=== PATIENT | male | born 1950 | race Caucasian/White ===

== ENCOUNTER 2017-10-19 10:04 | Day surgery (SDC) | payer MEDICARE, OTHER, SELFPAY ==
--- NOTE | 2017-10-19 10:04 | DT_ITS ---
This patient was seen during an EMR downtime October 12, 2017 - October 19, 2017. This patient may have a combination of paper and electronic documentation or all paper documentation. All documentation is viewable within the e-chart portion of [facility] for each patient visit.
--- NOTE | 2017-10-19 12:15 | RAD_ITS ---
STUDY: X-RAY - RIGHT WRIST REASON FOR EXAM: Male, 67 years old. ORIF TECHNIQUE: 3 intraoperative fluoroscopic views were provided during ORIF of a radial fracture. COMPARISON: None. FINDINGS: Total fluoroscopy time 13.6 seconds. 3 fluoroscopic views demonstrate placement of hardware during open reduction and internal fixation of a radial fracture. RAD/Wrist min 3 Views IMPRESSION: As above. Electronically Signed: Ricardo Cam, at 17:56 EDT Tel , Service support ,
== END 2017-10-19 15:55 | disposition home or self-care (01) ==
LOC: SDC 10:05
PROVIDERS: Family Provider Family Medicine; PCP Family Medicine; Visit Provider Orthopaedic Surgery
DX: S52.531A Colles' fracture of right radius, initial encounter for closed fracture (principal); W19.XXXA Unspecified fall, initial encounter; Y93.9 Activity, unspecified; Y92.9 Unspecified place or not applicable; Y99.9 Unspecified external cause status; I47.1 Supraventricular tachycardia; N28.1 Cyst of kidney, acquired; I10 Essential (primary) hypertension; E78.00 Pure hypercholesterolemia, unspecified; R19.7 Diarrhea, unspecified; Z87.891 Personal history of nicotine dependence
CPT/HCPCS: 01830; 25607; 73110; 76000; C1713; J7120; J2405

== ENCOUNTER 2017-12-16 08:00 | Outpatient (RCR) | payer MEDICARE, OTHER, SELFPAY ==
--- NOTE | 2017-11-24 11:15 | HP.OTEVAL ---
Patient's Visit Information ANA NOONAN is a 67 year old M, referred to Occupational Therapy by Monroe Devine, with a diagnosis of right distal radius fx. Date of Evaluation: 11/24/17 Occupational Therapist: Lynda Whitaker, MICHAEL/Jill, CHT - Subjective Subjective: Pt arrives to OT eval with dx of right radius fx. states he fell forward on October 12. Followed with ORIF October 19, 2017. PT states he is having difficulty with dressing, home mtg and work tasks at this time. He is right handed. 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 - Pain rigth wrist 2 Pain Intensity Range: 0, 4 - ROM Wrist: right 40/15 left 60/30 ROM Comments: left RD 15 UD 20. Right RD10 UD 15 - Strength Corporate Controller: right 25# left 60# Lateral Pinch: Right 8# left 12# Tripod Pinch: right 4# left 12# - Edema PIP: right MF 7.8 left 6.8 - Sensation Sensation Comments: denies - DASH-Disabilities of Arm, Shoulder& Hand DASH Sum: 64 - Goals Goal:: pt will demo a right refining engineer strength of 50# to return pt to PLOF with IADLs and work tasks by d/c Goal:: pt will demo a increase in right wrist ROM by 20 degrees to increase pt in functional BADLS and IADLS. Goal:: pt will report no pain greater than 1/10 with use of right UE for BADLS and IADLS by d/c Goal:: pt will demo understanding of scar mtg by end of 1st session. - Rehabilitation General Assessment: pt demo a decrease in right wrist ROM and functional strength limiting his ind. with BADLS and IADLS. pt demo need for skilled OT services 1-2xweek for 6 weeks- treatment will focus on ROM and PRE, scar mtg and HEP. Rehabilitation Potential: Excellent - Anticipated Interventions Anticipated Interventions: A/AAROM/PROM, Strengthening, Scar Care, Modalities, Fine Motor Coord/Dl - Visit Plan Frequency: 1-2x /Week Duration: 4 Weeks TEXT: Thank you for the opportunity to evaluate your patient. For Medicare and Medicare HMO plans, please review the plan of care and approve it. It will need to be FAXED BACK to us at [phone] for Medicare purposes. Please let me know if there are questions or concerns regarding this plan of care. Physician Signature: Date:
--- NOTE | 2017-12-16 08:16 | HP.OTDCSUM_ITS ---
HP - OT D/C Summary It has been my pleasure to treat ANA NOONAN under orders from Monroe Devine, for the diagnosis of right distal radius fx for a total of 7 visit(s). Please see the following information for a summary of their discharge status. - Overall Improvement % Improvement: 90 - Objective Objective/Function: pt demo the ability to form a composite fist. right boarding machine operator 70 # a increase from 25#. right lateral 10#. right tripod 10#. right wrist 50/ 40. pt reports he is ind. with BADls and IADLs. pt has returned to perfroming home mtg and yard work without difficuty. - Goals Patient Goals: Regain Mobility, Regain Strength, Decrease Swelling/Stiffness, Improve Fine Motor Skills, Use Hand/Wrist/Arm Normally Again Goal:: pt will demo a right boarding machine operator strength of 50# to return pt to PLOF with IADLs and work tasks by d/c Goal:: pt will demo a increase in right wrist ROM by 20 degrees to increase pt in functional BADLS and IADLS. Goal:: pt will report no pain greater than 1/10 with use of right UE for BADLS and IADLS by d/c Goal:: pt will demo understanding of scar mtg by end of 1st session. - Plan Plan: D/C - D/C Information Discharge Comments: Pt was seen for 7 OT visits following a right ORIF. pt has made great gains in strength and has returned to performing BADLs and IADLs. pt has returned to his work tasks without limitations. pt has met OT goals at this time. If there are questions or concerns regarding this patient's occupational therapy , please fell free to call me at [phone]. Thank you for the referral of this patient. Sincerely, Lynda Whitaker, OTR/L, CHT
== END 2017-12-16 13:31 | disposition home or self-care (01) ==
LOC: OT 08:00
PROVIDERS: Family Provider Family Medicine; PCP Family Medicine; Visit Provider Orthopaedic Surgery
DX: S52.531D Colles' fracture of right radius, subsequent encounter for closed fracture with routine healing (principal)
CPT/HCPCS: 97110; 97140; 97166; 97168

== ENCOUNTER 2022-02-26 21:11 | Inpatient (IN) | payer MEDICARE, SELFPAY ==
[2022-02-26 21:12] VITALS: BP 161/90; PULSE 71; RESP 18; TEMP 36.4; O2SAT 99; BMI 25.0
--- NOTE | 2022-02-26 21:31 | CT_ITS ---
STUDY: CT ABDOMEN AND PELVIS WITH CONTRAST REASON FOR EXAM: Male, 71 years old. LLQ pain -- IV PO Contrast RADIATION DOSAGE (If Supplied By Facility): CTDIvol = ( 17.80 ) mGy, DLP = ( 2308.70 ) mGycm TECHNIQUE: Transaxial images were obtained from the dome of the diaphragm to the symphysis pubis without oral contrast. Oral and amp; IV Gastrografin and amp; 100mL Isovue-370 was administered. Sagittal and coronal images were reconstructed. Individualized dose optimization techniques were used for this CT. COMPARISON: None. FINDINGS: The visualized lung bases are unremarkable. The visualized portions of the heart are within normal limits. Normal liver with several cysts. Normal gallbladder and extrahepatic biliary system. Normal spleen. Normal pancreas. Normal bilateral adrenal glands. Symmetric nephrograms and bilateral renal cysts. Small intraperitoneal free gas, predominantly upper and anterior. Normal visualized stomach. Normal small intestine. Enteric contrast reaches the cecum. Descending/sigmoid diverticula with associated inflammatory stranding and small free gas. No associated drainable fluid collection. The appendix is visualized and appears normal. Normal abdominal aorta. Normal inferior vena cava. Normal retroperitoneum. Normal urinary bladder. Normal visualized prostate gland. Normal abdominal wall. Normal thoracolumbar vertebral alignment. CT/Abdomen/Pelvis WITH Contrast IMPRESSION: Acute perforated sigmoid diverticulitis. Electronically Signed: Devante Becerra MD at 0:12 EDT ,
--- NOTE | 2022-02-26 21:32 | EX.ED.DYSGE1 ---
HPI <Dr. Marta Tompkins MD - Last Filed: 02/28/22 11:49> History of Present Illness Chief Complaint: Abd Pain Informant: patient Onset/Context/Timing Onset: Today Current Severity: Mild Maximum Severity: Severe Narrative Narrative: Patient presents secondary to left lower quadrant abdominal pain. He states around 7 PM this evening he had rather abrupt onset of left lower quadrant pain. It is been cramping and spasm-like. He reports having normal bowel movement today. No urinary symptoms. Only abdominal surgery in the past was a small right inguinal hernia. [facility] <Dr. Marta Tompkins MD - Last Filed: 02/28/22 11:49> [facility] Medical History Chest pain HTN (hypertension) Irregular heart beat Non-smoker Sleep apnea Home Medications ascorbic acid (vitamin C) 500 mg capsule,extended release (Vitamin C) 500 mg PO DAILY supplement 07/07/20 [History Last Taken 02/20/22 08:00] lisinopril 10 mg tablet 10 mg PO bp 07/07/20 [History Last Taken 02/26/22 08:00] Allergy/AdvReac Type Severity Reaction Status Date / Time No Known Allergies Allergy Verified 02/26/22 21:14 Family History Father Myocardial infarction Surgical History H/O wrist surgery History of hernia repair Social History Smoking Status: Never smoker alcohol intake: never ROS <Dr. Marta Tompkins MD - Last Filed: 02/28/22 11:49> ROS ED Constitutional Constitutional ED: Denies chills or fever(s) Eyes Eyes: Denies change in vision or discharge from eye(s) ENT ENT ED: Denies discharge from eye(s), rhinorrhea or sore throat Cardiovascular Cardiovascular: Denies chest pain or palpitations Respiratory/Chest Respiratory/Chest: Denies cough or dyspnea Gastrointestinal Gastrointestinal: Reports abdominal pain; Denies diarrhea, nausea or vomiting Genitourinary Genitourinary ED: Denies difficulty urinating or dysuria Musculoskeletal Musculoskeletal: Denies back pain or extremity pain Integumentary Denies Abrasions or rash Neurologic Neurologic: Denies headache(s) or weakness Psychiatric Psychiatric: Denies anxiety or depression Allergic/Immunologic Allergic/Immunologic ED: Denies lip swelling or urticaria EXAM <Dr. Marta Tompkins MD - Last Filed: 02/28/22 11:49> Physical Exam Const Vital Signs: 02/26/22 21:12 02/27/22 01:42 02/27/22 01:30 Temperature 97.6 F L 97.9 F Temperature Source Temporal Temporal Pulse Rate 71 79 77 Respiratory Rate 18 15 16 Blood Pressure 161/90 H 139/85 H Blood Pressure Mean 113 103 Pulse Ox 99 99 99 Oxygen Delivery Method Room Air Room Air Room Air Positive well nourished and well developed General Appearance ED: well developed HEENT Reports normocephalic and head/scalp atraumatic Eyes PERRL and EOMs intact bilaterally Neck supple Chest Wall inspection of chest normal and palpation of chest normal Resp normal respiratory effort and clear to auscultation bilaterally Cardio regular rate and regular rhythm GI GI Narrative: Focal toAbdomen is mildly distended. Active bowel sounds are noted. Newness on palpation. No palpable masses. Palpation: soft Extremity normal to inspection Neuro oriented x3 and no sensory deficits noted Sensorium / Orientation: alert Motor Exam: strength 5/5 throughout Psych mental status grossly normal Skin no rashes or lesions noted <Dr. Benjamin Garcia DO - Last Filed: 02/27/22 01:44> Physical Exam Const Vital Signs: 02/26/22 21:12 02/27/22 01:42 02/27/22 01:30 Temperature 97.6 F L 97.9 F Temperature Source Temporal Temporal Pulse Rate 71 79 77 Respiratory Rate 18 15 16 Blood Pressure 161/90 H 139/85 H Blood Pressure Mean 113 103 Pulse Ox 99 99 99 Oxygen Delivery Method Room Air Room Air Room Air MDM <Dr. Marta Tompkins MD - Last Filed: 02/28/22 11:49> MDM MDM Narrative Medical decision making narrative: IV line initiated and patient given IV fluids. Lab work and urinalysis ordered. CT scan abdomen pelvis with contrast obtained. Patient did have increased pain again while awaiting CT imaging and was given morphine and Zofran. Lab Data Attestation: I reviewed the patient's lab results. Labs: Laboratory Results - last 24 hr 02/26/22 02/26/22 02/26/22 21:36 21:41 21:41 WBC 9.9 RBC 5.38 Hgb 16.6 H Hct 50.4 MCV 93.7 MCH 30.9 MCHC 32.9 RDW Std Deviation 44.5 H RDW Coeff of Matthew 13.1 Plt Count 280 MPV 9.0 Immature Gran % (Auto) 0.400 Neut % (Auto) 76.0 H Lymph % (Auto) 15.4 L [place]cd[place] % (Auto) 6.2 Eos % (Auto) 1.8 Baso % (Auto) 0.2 Absolute Neuts (auto) 7.6 Absolute Lymphs (auto) 1.53 Nucleated RBC % 0 Sodium 141 Potassium 4.2 Chloride 106 Carbon Dioxide 31.0 Anion Gap 4 L BUN 18 Creatinine 1.12 Estim Creat Clear Calc 67.36 Est GFR (MDRD) Af Amer 83 Est GFR (MDRD) Non-Af 69 BUN/Creatinine Ratio 16.1 Glucose 121 H Calcium 9.6 Urine Color Straw Urine Clarity Clear Urine pH 7.0 Ur Specific [place] 1.010 Urine Protein Negative Urine Glucose (UA) Normal Urine Ketones Negative Urine Occult Blood Negative Urine Nitrite Negative Urine Bilirubin Negative Urine Urobilinogen Normal Ur Leukocyte Esterase Negative Urine RBC 0 SEEN Urine WBC 0 SEEN Ur Squamous Epith Cells 0 SEEN Urine Bacteria RARE Hyaline Casts 10-25 SEEN Fine Granular Casts 5-10 SEEN Coarse Granular Casts 0-5 SEEN Urine Mucus 0 SEEN Radiography Diagnostic Testing: Clinical Impression(s) from Imaging Studies Abdomen/Pelvis CT 02/26/22 21:31 IMPRESSION: Acute perforated sigmoid diverticulitis. Electronically Signed: Devante Becerra MD at 0:12 EDT , Treatment and Re-Evaluation Narrative: CBC and chemistry studies unremarkable. Urinalysis reveals casts but no sign of acute infection. On repeat exam abdomen is distended with hypoactive bowel sounds. He tells me his last bowel movement was about 12 hours ago. He has been passing a small amount of gas today. His pain started [address] scan will be sent out to oncoming physician for final interpretation and repeat eval. This was discussed with the patient and at bedside as well. <Dr. Benjamin Garcia, DO - Last Filed: 02/27/22 01:44> [facility] Narrative Medical decision making narrative: IV line initiated and patient given IV fluids. Lab work and urinalysis ordered. CT scan abdomen pelvis with contrast obtained. Patient did have increased pain again while awaiting CT imaging and was given morphine and Zofran. Patient was signed out to me while awaiting the CT results. The CT scan showed acute diverticulitis with perforation. Secondary to this I contacted general surgery who came to the ER to evaluate the patient. At this time after reviewing the CT scan as well as examining the patient general surgery feels that he can put him into the hospital and provide IV antibiotics and that there is no need for an emergent surgical procedure at this time. Patient was started on Zosyn secondary to the infectious process and was admitted to the hospital in stable condition Lab Data Labs: Laboratory Results - last 24 hr 02/26/22 02/26/22 02/26/22 21:36 21:41 21:41 WBC 9.9 RBC 5.38 Hgb 16.6 H Hct 50.4 MCV 93.7 MCH 30.9 MCHC 32.9 RDW Std Deviation 44.5 H RDW Coeff of Matthew 13.1 Plt Count 280 MPV 9.0 Immature Gran % (Auto) 0.400 Neut % (Auto) 76.0 H Lymph % (Auto) 15.4 L Mcdowell % (Auto) 6.2 Eos % (Auto) 1.8 Baso % (Auto) 0.2 Absolute Neuts (auto) 7.6 Absolute Lymphs (auto) 1.53 Nucleated RBC % 0 Sodium 141 Potassium 4.2 Chloride 106 Carbon Dioxide 31.0 Anion Gap 4 L BUN 18 Creatinine 1.12 Estim Creat Clear Calc 67.36 Est GFR (MDRD) Af Amer 83 Est GFR (MDRD) Non-Af 69 BUN/Creatinine Ratio 16.1 Glucose 121 H Calcium 9.6 Urine Color Straw Urine Clarity Clear Urine pH 7.0 Ur Specific [place] 1.010 Urine Protein Negative Urine Glucose (UA) Normal Urine Ketones Negative Urine Occult Blood Negative Urine Nitrite Negative Urine Bilirubin Negative Urine Urobilinogen Normal Ur Leukocyte Esterase Negative Urine RBC 0 SEEN Urine WBC 0 SEEN Ur Squamous Epith Cells 0 SEEN Urine Bacteria RARE Hyaline Casts 10-25 SEEN Fine Granular Casts 5-10 SEEN Coarse Granular Casts 0-5 SEEN Urine Mucus 0 SEEN Radiography Diagnostic Testing: Clinical Impression(s) from Imaging Studies Abdomen/Pelvis CT 02/26/22 21:31 IMPRESSION: Acute perforated sigmoid diverticulitis. Electronically Signed: Devante Becerra MD at 0:12 EDT , Discharge Plan Dx/Rx/DC Orders Clinical Impression: Diverticulitis of colon with perforation, Hypertension Disposition Disposition: Acute Care Hospital [facility]
[2022-02-26 21:50] LABS: Mucous, Urine 0 SEEN /hpf (<or=2+); Red Blood Cells-Urine 0 SEEN /hpf (0-5); Squamous Epithelial Cells - UA 0 SEEN /hpf (0-5); White Blood Cells 0 SEEN /hpf (0-5)
[2022-02-26 21:53] LABS: Absolute Lymphocyte Count 1.53 X10^3/uL (0.83-4.51); Absolute Neutrophil Count 7.6 X10^3/uL (2.0-7.7); Basophil# 0.02 X10^3/uL; Basophil% 0.2 % (0-1); Eosinophil# 0.18 X10^3/uL; Eosinophils% 1.8 % (0-5); Hematocrit 50.4 % (40-54); Hemoglobin 16.6 g/dL (13.0-16.5); Lymphocyte # 1.53 X10^3/ul (0.83-4.51); Lymphocyte % 15.4 % (19-41); Mean Corp Hgb Conc 32.9 g/dL (32-36); Mean Corpuscular Hgb 30.9 pg (27.0-32.0); Mean Corpuscular Volume 93.7 fL (80-94); Monocyte# 0.62 X10^3/uL; Monocyte% 6.2 % (0-10); NRBC Flagged by Analyzer 0 % (0-5); Neutrophil # 7.55 X10^3/uL (2.7-7.7); Platelet Count 280 K/mm3 (150-450); RBC Distribution Width CV 13.1 % (11.6-14.6); RBC Distribution Width SD 44.5 fl (35.1-43.9); Red Blood Count 5.38 M/mm3 (4.6-6.2); White Blood Count 9.9 K/mm3 (4.4-11.0)
[2022-02-26 21:59] LABS: Color, Urine Straw (Yellow); Glucose, Dipstick Normal (Normal); Ketone-Dipstick Negative (Negative); Leukocyte Esterase-Dipstick Negative /ul (Negative); Nitrite-Dipstick Negative (Negative); Occult Blood-Urine Negative /ul (Negative); Protein-Dipstick Negative (Negative); Urine Bilirubin Dipstick Negative (Negative); Urine Clarity Clear (Clear); Urine Urobilinogen Normal (Normal)
[2022-02-26] MEDS: 0.9% Normal Saline 1,000 ML 150 ML IV (22:00)
[2022-02-26 22:06] LABS: Anion Gap 4 (5-15); BUN 18 mg/dL (7-18); BUN/Creat Ratio 16.1 RATIO (10-20); Calcium,Total 9.6 mg/dL (8.5-10.1); Chloride 106 mmol/L (98-107); Creatinine, Serum 1.12 mg/dL (0.70-1.30); EST Glomerular Filtration Rate 69 mL/min (>60); Est Glom Filt Rate - Afr Amer 83 mL/min (>60); Estimated Creatinine Clearance 67.36 ml/min; Glucose 121 mg/dL (74-106); Potassium 4.2 mmol/L (3.5-5.1); Sodium Level 141 mmol/L (136-145)
[2022-02-26 22:08] LABS: Bacteria RARE /hpf (None Seen); Hyaline Cast 10-25 SEEN /lpf (0-5)
[2022-02-26 22:09] LABS: Coarse Granular Cast 0-5 SEEN /lpf (0-5 /lpf); Fine Granular Cast- Urine 5-10 SEEN /lpf (0-5)
[2022-02-26] MEDS: Ondansetron 4 MG/2 ML Vial IV (22:39)
[2022-02-26] MEDS: Morphine 4 MG/ML Syringe IV (22:39)
[2022-02-27] VITALS (8 sets, daily range): BP systolic 118–145; BP diastolic 72–93; PULSE 72–81; RESP 15–18; TEMP 36.6–37.3; O2SAT 94–99; BMI 25.0
--- NOTE | 2022-02-27 01:30 | PCM.HP.STD ---
HPI - General HPI Narrative ANA NOONAN, is a 71 M who presents with lower abdominal pain. Patient reports this started about 5:30 PM. He says that he felt a sharp pain in the left lower quadrant that started suddenly. He currently says his pain is well controlled on the morphine which he took 3 hours ago. He denies any nausea or vomiting or fevers or chills. He denies any radiation of pain. He has never had diverticulitis in the past. Denies previous colonoscopy only Cologuard. He is on turmeric. He reports recent travel to [place]. [facility] Medical History HTN (hypertension) Home Medications ascorbic acid (vitamin C) 500 mg capsule,extended release (Vitamin C) 500 mg PO DAILY 07/07/20 [History Last Taken Unknown] cholecalciferol (vitamin D3) 10 mcg (400 unit) capsule (Vitamin D3) 10 mcg PO DAILY 07/07/20 [History Last Taken Unknown] elderberry fruit 460 mg-elderberry flower 115 mg capsule cap PO 07/07/20 [History Last Taken Unknown] lisinopril 10 mg tablet mg PO 07/07/20 [History Last Taken Unknown] turmeric 400 mg capsule mg PO 07/07/20 [History Last Taken Unknown] Allergy/AdvReac Type Severity Reaction Status Date / Time No Known Allergies Allergy Verified 02/26/22 21:14 Family History Father Myocardial infarction Surgical History H/O wrist surgery History of hernia repair Social History Smoking Status: Never smoker alcohol intake: never ROS Constitutional Constitutional: Denies anorexia, chills, fatigue or fever(s) Eyes Eyes: Denies blurry vision ENT HEENT: Denies abnormal hearing Cardiovascular Cardiovascular: Denies chest pain Respiratory/Chest Respiratory/Chest: Denies cough or dyspnea Gastrointestinal Gastrointestinal: Reports abdominal pain; Denies change in bowel habits, coffee ground emesis, diarrhea, hematemesis, hematochezia, melena, nausea, rectal bleeding or vomiting Genitourinary Genitourinary: Denies change in urinary stream Musculoskeletal Musculoskeletal: Denies abnormal gait Integumentary Integumentary: Denies jaundice Psychiatric Psychiatric: Denies anxiety Endocrine Endocrinology: Denies flushing Hematologic/Lymphatic Hematologic/Lymphatic: Denies easy bleeding Vital Signs Vital Signs Vital Signs: 02/26/22 21:12 Temperature 97.6 F L Temperature Source Temporal Pulse Rate 71 Respiratory Rate 18 Blood Pressure 161/90 H Blood Pressure Mean 113 Pulse Ox 99 Oxygen Delivery Method Room Air Weight Weight: 185 lb Body Mass Index (BMI) 25.0 Physical Exam Const oriented x3 and no apparent distress Resp normal respiratory effort Cardio regular rate and regular rhythm GI Palpation: tender LLQ Results Lab / Micro Data Result Diagrams: 02/26/22 21:41 02/26/22 21:41 Labs: Laboratory Results - last 24 hr 02/26/22 21:36: Urine Color Straw, Urine Clarity Clear, Urine pH 7.0, Ur Specific [place] 1.010, Urine Protein Negative, Urine Glucose (UA) Normal, Urine Ketones Negative, Urine Occult Blood Negative, Urine Nitrite Negative, Urine Bilirubin Negative, Urine Urobilinogen Normal, Ur Leukocyte Esterase Negative, Urine RBC 0 SEEN, Urine WBC 0 SEEN, Ur Squamous Epith Cells 0 SEEN, Urine Bacteria RARE, Hyaline Casts 10-25 SEEN, Fine Granular Casts 5-10 SEEN, Coarse Granular Casts 0-5 SEEN, Urine Mucus 0 SEEN 02/26/22 21:41: WBC 9.9, RBC 5.38, Hgb 16.6 H, Hct 50.4, MCV 93.7, MCH 30.9, MCHC 32.9, RDW Std Deviation 44.5 H, RDW Coeff of Matthew 13.1, Plt Count 280, MPV 9.0, Immature Gran % (Auto) 0.400, Neut % (Auto) 76.0 H, Lymph % (Auto) 15.4 L, [place] % (Auto) 6.2, Eos % (Auto) 1.8, Baso % (Auto) 0.2, Absolute Neuts (auto) 7.6, Absolute Lymphs (auto) 1.53, Nucleated RBC % 0 02/26/22 21:41: Sodium 141, Potassium 4.2, Chloride 106, Carbon Dioxide 31.0, Anion Gap 4 L, BUN 18, Creatinine 1.12, Estim Creat Clear Calc 67.36, Est GFR (MDRD) Af Amer 83, Est GFR (MDRD) Non-Af 69, BUN/Creatinine Ratio 16.1, Glucose 121 H, Calcium 9.6 Radiology Impression Abdomen/Pelvis CT 02/26/22 21:31 IMPRESSION: Acute perforated sigmoid diverticulitis. Electronically Signed: Devante Becerra MD at 0:12 EDT , Assessment & Plan Assessment/Plan (1) Diverticulitis of colon with perforation: PLAN: The patient has diverticulitis of the sigmoid descending junction. The patient CT scan shows some bubbles of air. I am unsure if the bubbles of air are a microperforation that has sealed or if we are just taking a CT scan very early in the process. Currently his abdomen is tender in the left lower quadrant but he is not having diffuse tenderness or guarding. Patient has tenderness to deep palpation in that area. He denies nausea or vomiting or fevers or chills. He is not tachycardic. His white count is upper limits of normal with a small left shift. At this time the patient appears comfortable on morphine that was given around 3 hours ago. Likely that morphine is worn off. I discussed emergency operation versus observation. I discussed surgery with him in detail and I discussed that he would be at increased risk for colostomy or complications from surgery due to the perforation and acute nature of the diverticulitis as well as the turmeric. At this time the patient is agreeable for observation. I will recheck labs in the morning. I will start him on IV antibiotics and keep him n.p.o. I advised him that would be a few days of being n.p.o. if we are able to treat this conservatively. If his physical exam or vital signs worsen I will repeat a CT scan to see if there are any changes and possibly still have to perform emergency surgery. Patient is aware of the plan and is in agreement. The patient's is present and agree with the plan as well. Zain Kaufman MD Pager: [facility] [address] [place] [address], [address] [place] [address] Office:
[2022-02-27] MEDS: 0.9% Normal Saline 1,000 ML 125 ML IV ×3 (05:07→18:49)
[2022-02-27 06:37] LABS: Absolute Lymphocyte Count 0.85 X10^3/uL (0.83-4.51); Absolute Neutrophil Count 13.1 X10^3/uL (2.0-7.7); Basophil# 0.03 X10^3/uL; Basophil% 0.2 % (0-1); Hematocrit 43.1 % (40-54); Hemoglobin 15.1 g/dL (13.0-16.5); Lymphocyte # 0.85 X10^3/ul (0.83-4.51); Lymphocyte % 5.7 % (19-41); Mean Corpuscular Hgb 32.2 pg (27.0-32.0); Mean Corpuscular Volume 91.9 fL (80-94); Mean Platelet Vol. 9.1 fl (6.2-12.0); Monocyte# 1.03 X10^3/uL; Monocyte% 6.9 % (0-10); NRBC Flagged by Analyzer 0 % (0-5); Neutrophil # 13.07 X10^3/uL (2.7-7.7); Neutrophil % 86.9 % (47-70); Platelet Count 223 K/mm3 (150-450); RBC Distribution Width CV 13.2 % (11.6-14.6); Red Blood Count 4.69 M/mm3 (4.6-6.2)
[2022-02-27 07:03] LABS: Anion Gap 5 (5-15); BUN 18 mg/dL (7-18); BUN/Creat Ratio 16.4 RATIO (10-20); Calcium,Total 8.4 mg/dL (8.5-10.1); Chloride 109 mmol/L (98-107); EST Glomerular Filtration Rate 70 mL/min (>60); Est Glom Filt Rate - Afr Amer 85 mL/min (>60); Estimated Creatinine Clearance 68.59 ml/min; Glucose 135 mg/dL (74-106); Potassium 4.2 mmol/L (3.5-5.1); Sodium Level 141 mmol/L (136-145)
--- NOTE | 2022-02-27 09:15 | PCM.PN.SRG ---
Subjective Subjective Patient reports he is feeling much better this morning. He says he is not in as much pain as he was last night he is able to lift his legs without pain. He is still experiencing some minor pain with palpation of the left lower quadrant but other than that he is not having much pain. He reports no nausea or vomiting or fevers or chills overnight. Objective Data Objective Data Vital Signs: Vital Signs Temp Pulse Resp BP Pulse Ox O2 Del Method 98.0 F 76 17 122/86 H 96 Room Air 02/27/22 07:30 02/27/22 07:30 02/27/22 07:30 02/27/22 07:30 02/27/22 07:30 02/27/22 07:30 Oxygen Delivery Method Room Air Weight: 184 lb 15.485 oz Body Mass Index (BMI) 25.0 Intake & Output: Intake and Output for Last 24 Hours 02/25/22 02/26/22 02/27/22 23:59 23:59 23:59 Intake Total 1053.25 / 1053.25 Output Total 500 / 500 Balance 553.25 / 553.25 Lab / Micro Data Result Diagrams: 02/27/22 06:23 02/27/22 06:23 Labs: Laboratory Results - last 24 hr 02/26/22 21:36: Urine Color Straw, Urine Clarity Clear, Urine pH 7.0, Ur Specific [place] 1.010, Urine Protein Negative, Urine Glucose (UA) Normal, Urine Ketones Negative, Urine Occult Blood Negative, Urine Nitrite Negative, Urine Bilirubin Negative, Urine Urobilinogen Normal, Ur Leukocyte Esterase Negative, Urine RBC 0 SEEN, Urine WBC 0 SEEN, Ur Squamous Epith Cells 0 SEEN, Urine Bacteria RARE, Hyaline Casts 10-25 SEEN, Fine Granular Casts 5-10 SEEN, Coarse Granular Casts 0-5 SEEN, Urine Mucus 0 SEEN 02/26/22 21:41: WBC 9.9, RBC 5.38, Hgb 16.6 H, Hct 50.4, MCV 93.7, MCH 30.9, MCHC 32.9, RDW Std Deviation 44.5 H, RDW Coeff of Matthew 13.1, Plt Count 280, MPV 9.0, Immature Gran % (Auto) 0.400, Neut % (Auto) 76.0 H, Lymph % (Auto) 15.4 L, [place] % (Auto) 6.2, Eos % (Auto) 1.8, Baso % (Auto) 0.2, Absolute Neuts (auto) 7.6, Absolute Lymphs (auto) 1.53, Nucleated RBC % 0 02/26/22 21:41: Sodium 141, Potassium 4.2, Chloride 106, Carbon Dioxide 31.0, Anion Gap 4 L, BUN 18, Creatinine 1.12, Estim Creat Clear Calc 67.36, Est GFR (MDRD) Af Amer 83, Est GFR (MDRD) Non-Af 69, BUN/Creatinine Ratio 16.1, Glucose 121 H, Calcium 9.6 02/27/22 06:23: WBC 15.0 H, RBC 4.69, Hgb 15.1, Hct 43.1, MCV 91.9, MCH 32.2 H, MCHC 35.0 D, RDW Std Deviation 44.0 H, RDW Coeff of Matthew 13.2, Plt Count 223, MPV 9.1, Immature Gran % (Auto) 0.300, Neut % (Auto) 86.9 H, Lymph % (Auto) 5.7 L, [place] % (Auto) 6.9, Eos % (Auto) 0.0, Baso % (Auto) 0.2, Absolute Neuts (auto) 13.1 H, Absolute Lymphs (auto) 0.85, Nucleated RBC % 0 02/27/22 06:23: Sodium 141, Potassium 4.2, Chloride 109 H, Carbon Dioxide 27.0, Anion Gap 5, BUN 18, Creatinine 1.10, Estim Creat Clear Calc 68.59, Est GFR (MDRD) Af Amer 85, Est GFR (MDRD) Non-Af 70, BUN/Creatinine Ratio 16.4, Glucose 135 H, Calcium 8.4 L Radiography Diagnostic Testing: Radiology Impression Abdomen/Pelvis CT 02/26/22 21:31 IMPRESSION: Acute perforated sigmoid diverticulitis. Electronically Signed: Devante Becerra MD at 0:12 EDT , Physical Exam Const oriented x3 Resp normal respiratory effort Cardio regular rate and regular rhythm GI soft to palpation Palpation: tender LLQ Assessment & Plan Assessment/Plan (1) Diverticulitis of colon with perforation: PLAN: Patient had his white count increased to 15 but this may be due to the diverticulitis and not necessarily the perforation or contamination of the abdomen. Patient reports his pain is improving and he is able to lift his legs and he has not taken any pain medication since around 24 hours ago. He says he is feeling much better and he denies any fevers or chills since seeing him this morning. At this time I will continue to monitor the white count and recheck this afternoon to see if it is increasing I will reround on him this afternoon to see if there is any worsening of physical exam or vital signs. I once again explained that if anything change for the worse he would have surgery to remove the segment of colon. At this time we will continue conservative management and antibiotics and IV fluids with n.p.o. status. Zain Kaufman MD Pager: [facility] [address] [place] [address], [address] [place] [address] Office:
--- NOTE | 2022-02-27 10:25 | CASEMGMT ---
RN CM Face to Face with patient for initial transition planning/care coordination assessment. RN CM introduced self and role at [facility]. Patient lying in bed, alert and oriented, at bedside. Patient willing to participate in assessment and is able to answer all questions appropriately. Care providers, pharmacy, and demographics verified. Patient wishes to discharge home, denies need for home health at this time. Patient states he has no further needs or concerns at this time. CM to follow for discharge planning needs that may arise. PCP: Dorothy Specialists: none Preferred Pharmacy: [facility]; [facility] retail at discharge. Insurance: [employer] Prescription Benefit: yes Living Will/HPOA: yes, Jennifer Tsai, HPOA LNOK: Living Arrangements: Patient lives with in a raised ranch with 2 steps to enter the home. Patient is independent at home. Transportation: self, DME/HHC: Patient denies DME or previous HHC Disposition Plan: Patient to discharge home with family support and follow-up plans in place. Tiffany CRAWFORD, RN, CM
[2022-02-27 12:05] LABS: Absolute Lymphocyte Count 1.18 X10^3/uL (0.83-4.51); Absolute Neutrophil Count 11.1 X10^3/uL (2.0-7.7); Basophil# 0.02 X10^3/uL; Basophil% 0.1 % (0-1); Eosinophil# 0.02 X10^3/uL; Eosinophils% 0.1 % (0-5); Hematocrit 42.9 % (40-54); Hemoglobin 14.6 g/dL (13.0-16.5); Lymphocyte # 1.18 X10^3/ul (0.83-4.51); Lymphocyte % 8.7 % (19-41); Mean Corpuscular Hgb 31.7 pg (27.0-32.0); Mean Corpuscular Volume 93.3 fL (80-94); Monocyte# 1.06 X10^3/uL; Monocyte% 7.8 % (0-10); NRBC Flagged by Analyzer 0 % (0-5); Platelet Count 205 K/mm3 (150-450); RBC Distribution Width CV 13.2 % (11.6-14.6); RBC Distribution Width SD 44.9 fl (35.1-43.9); White Blood Count 13.6 K/mm3 (4.4-11.0)
--- NOTE | 2022-02-27 15:39 | CHAPLAIN ---
Type of Pastoral Visit _x__ Initial Visit ___ Follow-up Visit ___ On-call Visit ___ General Patient Visit ___ Spiritual Assessment ___ Family Conference ___ Bereavement ___ Rapid Response ___ Code Blue ___ Other (describe below) Pastoral Care Referral From _x__ Patient ___ Family ___ Nurse ___ Physician ___ Respiratory Care Instructor ___ Long Lines Operator ___ Other (describe below) Sacrament/Intervention _x__ Active listening ___ Anointing ___ Latter-Day ___ Bereavement ___ Communion _x__ Gaby exploration ___ _x__ Life review _x__ Prayer ___ Reconciliation ___ Sacrament of Sick ___ Supportive presence ___ Wedding ___ Other (describe below) Pastoral Comments patient is very eager to give life review and 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
[2022-02-28] VITALS (7 sets, daily range): BP systolic 116–148; BP diastolic 78–89; PULSE 71–78; RESP 16–18; TEMP 36.8–37.2; O2SAT 95–98
[2022-02-28] MEDS: 0.9% Normal Saline 1,000 ML 125 ML IV ×3 (02:35→18:32)
[2022-02-28 06:25] LABS: Absolute Lymphocyte Count 1.09 X10^3/uL (0.83-4.51); Absolute Neutrophil Count 7.8 X10^3/uL (2.0-7.7); Basophil# 0.02 X10^3/uL; Basophil% 0.2 % (0-1); Eosinophil# 0.12 X10^3/uL; Eosinophils% 1.2 % (0-5); Hematocrit 41.6 % (40-54); Hemoglobin 13.7 g/dL (13.0-16.5); Lymphocyte # 1.09 X10^3/ul (0.83-4.51); Lymphocyte % 10.9 % (19-41); Mean Corp Hgb Conc 32.9 g/dL (32-36); Mean Corpuscular Hgb 30.9 pg (27.0-32.0); Mean Corpuscular Volume 93.7 fL (80-94); Mean Platelet Vol. 9.2 fl (6.2-12.0); NRBC Flagged by Analyzer 0 % (0-5); Neutrophil % 78.2 % (47-70); Platelet Count 186 K/mm3 (150-450); RBC Distribution Width CV 13.1 % (11.6-14.6); RBC Distribution Width SD 44.6 fl (35.1-43.9); Red Blood Count 4.44 M/mm3 (4.6-6.2)
[2022-02-28 06:48] LABS: Anion Gap 7 (5-15); BUN 13 mg/dL (7-18); BUN/Creat Ratio 12.3 RATIO (10-20); Calcium,Total 8.4 mg/dL (8.5-10.1); Chloride 108 mmol/L (98-107); Creatinine, Serum 1.06 mg/dL (0.70-1.30); EST Glomerular Filtration Rate 73 mL/min (>60); Est Glom Filt Rate - Afr Amer 89 mL/min (>60); Estimated Creatinine Clearance 71.17 ml/min; Glucose 99 mg/dL (74-106); Sodium Level 139 mmol/L (136-145)
--- NOTE | 2022-02-28 08:12 | PN.SURG_ITS ---
Subjective Subjective Patient reports no abdominal pain when sitting still. With palpation he still having some left lower quadrant pain. No nausea or vomiting. No fevers or chills overnight. Objective Data Objective Data Vital Signs: Vital Signs Temp Pulse Resp BP Pulse Ox O2 Del Method 98.7 F 78 18 148/86 H 95 Room Air 02/28/22 05:53 02/28/22 05:53 02/28/22 05:53 02/28/22 05:53 02/28/22 05:53 02/28/22 05:53 Oxygen Delivery Method Room Air Weight: 184 lb 15.485 oz Body Mass Index (BMI) 25.0 Intake & Output: Intake and Output for Last 24 Hours 02/26/22 02/27/22 02/28/22 23:59 23:59 23:59 Intake Total 2973.67 / 2973.67 1020.83 / 1020.83 Output Total 900 / 900 Balance 2073.67 / 2073.67 1020.83 / 1020.83 Lab / Micro Data Result Diagrams: 02/28/22 06:03 02/28/22 06:03 Labs: Laboratory Results - last 24 hr 02/27/22 11:48: WBC 13.6 H, RBC 4.60, Hgb 14.6, Hct 42.9, MCV 93.3, MCH 31.7, MCHC 34.0, RDW Std Deviation 44.9 H, RDW Coeff of Matthew 13.2, Plt Count 205, MPV 9.0, Immature Gran % (Auto) 1.300 H, Neut % (Auto) 82.0 H, Lymph % (Auto) 8.7 L, [place] % (Auto) 7.8, Eos % (Auto) 0.1, Baso % (Auto) 0.1, Absolute Neuts (auto) 11.1 H, Absolute Lymphs (auto) 1.18, Nucleated RBC % 0 02/28/22 06:03: WBC 10.0, RBC 4.44 L, Hgb 13.7, Hct 41.6, MCV 93.7, MCH 30.9, MCHC 32.9, RDW Std Deviation 44.6 H, RDW Coeff of Matthew 13.1, Plt Count 186, MPV 9.2, Immature Gran % (Auto) 0.500, Neut % (Auto) 78.2 H, Lymph % (Auto) 10.9 L, [place] % (Auto) 9.0, Eos % (Auto) 1.2, Baso % (Auto) 0.2, Absolute Neuts (auto) 7.8 H, Absolute Lymphs (auto) 1.09, Nucleated RBC % 0 02/28/22 06:03: Sodium 139, Potassium 4.0, Chloride 108 H, Carbon Dioxide 24.0, Anion Gap 7, BUN 13, Creatinine 1.06, Estim Creat Clear Calc 71.17, Est GFR (MDR D) Af Amer 89, Est GFR (MDRD) Non-Af 73, BUN/Creatinine Ratio 12.3, Glucose 99, Calcium 8.4 L Physical Exam Const oriented x3 Resp normal respiratory effort GI soft to palpation Palpation: tender LLQ Assessment & Plan Assessment/Plan (1) Diverticulitis of colon with perforation: PLAN: The patient's white count continues to come down on antibiotics. He is only having pain with deep palpation in the left lower quadrant. I would continue n.p.o. until pain is resolved and the white count has returned to the lower. Continue observation with IV fluids and IV antibiotics. Once the patient's pain resolves I will start clear liquid diet. Zain Kaufman MD Pager: [facility] [address] [place] [address], [address] [place] [address] Office:
[2022-03-01] MEDS: 0.9% Normal Saline 1,000 ML 125 ML IV ×3 (01:45→17:59)
[2022-03-01 02:00] VITALS: BP 141/91; PULSE 68; RESP 16; TEMP 36.7; O2SAT 94
[2022-03-01 07:13] LABS: Absolute Lymphocyte Count 0.89 X10^3/uL (0.83-4.51); Absolute Neutrophil Count 7.4 X10^3/uL (2.0-7.7); Basophil# 0.02 X10^3/uL; Basophil% 0.2 % (0-1); Eosinophil# 0.17 X10^3/uL; Eosinophils% 1.8 % (0-5); Hematocrit 41.3 % (40-54); Hemoglobin 14.2 g/dL (13.0-16.5); Lymphocyte # 0.89 X10^3/ul (0.83-4.51); Lymphocyte % 9.6 % (19-41); Mean Corp Hgb Conc 34.4 g/dL (32-36); Mean Corpuscular Hgb 31.6 pg (27.0-32.0); Mean Platelet Vol. 9.2 fl (6.2-12.0); Monocyte# 0.78 X10^3/uL; Monocyte% 8.4 % (0-10); NRBC Flagged by Analyzer 0 % (0-5); Neutrophil # 7.38 X10^3/uL (2.7-7.7); Neutrophil % 79.7 % (47-70); Platelet Count 188 K/mm3 (150-450); RBC Distribution Width CV 12.8 % (11.6-14.6); RBC Distribution Width SD 43.5 fl (35.1-43.9); Red Blood Count 4.49 M/mm3 (4.6-6.2); White Blood Count 9.3 K/mm3 (4.4-11.0)
[2022-03-01 07:41] LABS: Anion Gap 6 (5-15); BUN 13 mg/dL (7-18); BUN/Creat Ratio 15.8 RATIO (10-20); Calcium,Total 8.3 mg/dL (8.5-10.1); Chloride 109 mmol/L (98-107); Creatinine, Serum 0.82 mg/dL (0.70-1.30); EST Glomerular Filtration Rate 98 mL/min (>60); Est Glom Filt Rate - Afr Amer 118 mL/min (>60); Estimated Creatinine Clearance 90.69 ml/min; Glucose 87 mg/dL (74-106); Potassium 3.8 mmol/L (3.5-5.1); Sodium Level 139 mmol/L (136-145)
[2022-03-01 09:22] VITALS: BP 140/94; PULSE 60; RESP 18; TEMP 36.6; O2SAT 100
[2022-03-01 09:26] VITALS: BP 140/94; PULSE 64; RESP 18; TEMP 36.6; O2SAT 100
[2022-03-01] MEDS: Ensure Clear 120 ML Liquid PO ×2 (11:10→17:58)
--- NOTE | 2022-03-01 12:17 | PCM.PN.SRG ---
Subjective Subjective Patient was seen and examined during AM rounds. He is in very good spirits and states that this is the best he has felt since his admission. He reports that his abdominal pain is very minimal and really only present when he attempts to move out of bed. Even with this, his pain dissipates by the time he is standing. He also reports that he had his first bowel movement of this day at approximately 0 500 this morning. He denies any pain with this and states that he now feels hungry. He denies any issues with urination?including any passage of air. He and his have a lot of questions regarding what his stay is likely to look like and what his treatment options are long-term. Objective Data Objective Data Vital Signs: Vital Signs Temp Pulse Resp BP Pulse Ox O2 Del Method 97.8 F 64 18 140/94 H 100 Room Air 03/01/22 09:26 03/01/22 09:26 03/01/22 09:26 03/01/22 09:26 03/01/22 09:26 03/01/22 09:26 Oxygen Delivery Method Room Air Weight: 184 lb 15.485 oz Body Mass Index (BMI) 25.0 Intake & Output: Intake and Output for Last 24 Hours 02/27/22 02/28/22 03/01/22 23:59 23:59 23:59 Intake Total 2973.67 / 2973.67 3360.91 / 3360.91 2160.50 / 2160.50 Output Total 900 / 900 400 / 400 Balance 2073.67 / 2073.67 2960.91 / 2960.91 2160.50 / 2160.50 Lab / Micro Data Result Diagrams: 03/01/22 07:03 03/01/22 07:03 Labs: Laboratory Results - last 24 hr 03/01/22 07:03: WBC 9.3, RBC 4.49 L, Hgb 14.2, Hct 41.3, MCV 92.0, MCH 31.6, MCHC 34.4, RDW Std Deviation 43.5, RDW Coeff of Matthew 12.8, Plt Count 188, MPV 9.2, Immature Gran % (Auto) 0.300, Neut % (Auto) 79.7 H, Lymph % (Auto) 9.6 L, [place] % (Auto) 8.4, Eos % (Auto) 1.8, Baso % (Auto) 0.2, Absolute Neuts (auto) 7.4, Absolute Lymphs (auto) 0.89, Nucleated RBC % 0 03/01/22 07:03: Sodium 139, Potassium 3.8, Chloride 109 H, Carbon Dioxide 24.0, Anion Gap 6, BUN 13, Creatinine 0.82, Estim Creat Clear Calc 90.69, Est GFR (MDRD) Af Amer 118, Est GFR (MDRD) Non-Af 98, BUN/Creatinine Ratio 15.8, Glucose 87, Calcium 8.3 L Physical Exam Const oriented x3 Constitutional Narrative: Patient optimistic and in good spirits given that today is his birthday and that he is feeling better Resp normal respiratory effort GI GI Narrative: Minimally distended, soft, minimally tender (patient rates this 1 out of 10) to deep palpation in the left lower quadrant?otherwise unremarkable Assessment & Plan Assessment/Plan (1) Diverticulitis of colon with perforation: PLAN: Patient is hospital day 3 for admission for complicated diverticulitis. He states that each day he feels a little better and today his pain is down to a 1 out of 10. He also had a bowel movement this morning (which she states was formed and unremarkable). He expresses an appetite. Objectively, patient has remained afebrile and his white blood cell count has down trended now to 9.3 from 10 yesterday. His exam is reassuring with very minimal tenderness to deep palpation of the left lower quadrant. Taken together, I have advised we begin a clear liquid diet today and assess for his tolerance. We will plan to continue intravenous antibiotics and monitor his abdominal exam. Patient and his spouse have a number of questions regarding his projected length of stay, and I have shared with him that this will be dependent on his response to each change within his care and no timeline can be set as of now. Charges/Coding Visit Charges Inpatient E&M: 91228 Subs Hosp L2
[2022-03-01 14:18] VITALS: BP 136/83; PULSE 64; RESP 18; TEMP 36.7; O2SAT 98
[2022-03-01 21:30] VITALS: BP 155/94; PULSE 70; RESP 16; TEMP 36.6; O2SAT 97
[2022-03-02] MEDS: 0.9% Normal Saline 1,000 ML 125 ML IV ×2 (01:53→11:50)
[2022-03-02 02:03] VITALS: BP 134/82; PULSE 58; RESP 16; TEMP 36.2; O2SAT 96
[2022-03-02 07:25] LABS: Absolute Lymphocyte Count 1.05 X10^3/uL (0.83-4.51); Basophil# 0.02 X10^3/uL; Basophil% 0.3 % (0-1); Eosinophil# 0.29 X10^3/uL; Eosinophils% 4.1 % (0-5); Hematocrit 42.3 % (40-54); Hemoglobin 14.7 g/dL (13.0-16.5); Lymphocyte # 1.05 X10^3/ul (0.83-4.51); Lymphocyte % 14.9 % (19-41); Mean Corp Hgb Conc 34.8 g/dL (32-36); Mean Corpuscular Hgb 31.9 pg (27.0-32.0); Mean Corpuscular Volume 91.8 fL (80-94); Mean Platelet Vol. 9.7 fl (6.2-12.0); Monocyte# 0.62 X10^3/uL; Monocyte% 8.8 % (0-10); NRBC Flagged by Analyzer 0 % (0-5); Neutrophil # 5.02 X10^3/uL (2.7-7.7); Neutrophil % 71.3 % (47-70); Platelet Count 251 K/mm3 (150-450); RBC Distribution Width SD 43.3 fl (35.1-43.9); Red Blood Count 4.61 M/mm3 (4.6-6.2)
[2022-03-02 07:48] LABS: Anion Gap 5 (5-15); BUN 10 mg/dL (7-18); Calcium,Total 8.7 mg/dL (8.5-10.1); Chloride 107 mmol/L (98-107); Creatinine, Serum 0.91 mg/dL (0.70-1.30); EST Glomerular Filtration Rate 88 mL/min (>60); Est Glom Filt Rate - Afr Amer 106 mL/min (>60); Estimated Creatinine Clearance 81.72 ml/min; Glucose 83 mg/dL (74-106); Phosphorus 1.8 mg/dL (2.5-4.9); Potassium 3.6 mmol/L (3.5-5.1); Sodium Level 139 mmol/L (136-145)
[2022-03-02 08:46] VITALS: BP 159/80; PULSE 60; RESP 18; TEMP 36.6; O2SAT 98
[2022-03-02] MEDS: Ensure Clear 120 ML Liquid PO ×3 (08:55→18:38)
[2022-03-02] MEDS: Na Biphos/Potassium Phosphate PACKET 1 PACKET PO (10:58)
[2022-03-02] MEDS: Lisinopril 10 MG Tablet PO (11:58)
--- NOTE | 2022-03-02 13:41 | PN.SURG_ITS ---
Subjective Subjective Patient was seen and examined during AM rounds. He is upbeat and states that he feels very well this morning. He states he really appreciated his clear liquids yesterday and continues to have an appetite. He reports additional bowel movements overnight that were loose in character. He also reports noting some J ell-O dye within these bowel movements. He denies any nausea. Objective Data Objective Data Vital Signs: Vital Signs Temp Pulse Resp BP Pulse Ox O2 Del Method 97.8 F 60 18 159/80 H 98 Room Air 03/02/22 08:46 03/02/22 08:46 03/02/22 08:46 03/02/22 08:46 03/02/22 08:46 03/02/22 08:46 Oxygen Delivery Method Room Air Weight: 184 lb 15.485 oz Body Mass Index (BMI) 25.0 Intake & Output: Intake and Output for Last 24 Hours 02/28/22 03/01/22 03/02/22 23:59 23:59 23:59 Intake Total 3360.91 / 3360.91 3256.75 / 3256.75 2197.5 / 2197.5 Output Total 400 / 400 Balance 2960.91 / 2960.91 3256.75 / 3256.75 2197.5 / 2197.5 Lab / Micro Data Result Diagrams: 03/02/22 05:45 03/02/22 05:45 Labs: Laboratory Results - last 24 hr 03/02/22 05:45: WBC 7.0, RBC 4.61, Hgb 14.7, Hct 42.3, MCV 91.8, MCH 31.9, MCHC 34.8, RDW Std Deviation 43.3, RDW Coeff of Matthew 13.0, Plt Count 251, MPV 9.7, Immature Gran % (Auto) 0.600, Neut % (Auto) 71.3 H, Lymph % (Auto) 14.9 L, [place] % (Auto) 8.8, Eos % (Auto) 4.1, Baso % (Auto) 0.3, Absolute Neuts (auto) 5.0, Absolute Lymphs (auto) 1.05, Nucleated RBC % 0 03/02/22 05:45: Sodium 139, Potassium 3.6, Chloride 107, Carbon Dioxide 27.0, Anion Gap 5, BUN 10, Creatinine 0.91, Estim Creat Clear Calc 81.72, Est GFR ( MDRD) Af Amer 106, Est GFR (MDRD) Non-Af 88, BUN/Creatinine Ratio 11.0, Glucose 83, Calcium 8.7, Phosphorus 1.8 L, Magnesium 2.0 Physical Exam Const oriented x3 and no apparent distress Resp normal respiratory effort GI GI Narrative: Mildly distended, soft, minimally tender to palpation left lower quadrant?otherwise unremarkable (stable from yesterday) Assessment & Plan Assessment/Plan (1) Diverticulitis of colon with perforation: PLAN: Patient is hospital day 4 for admission for complicated diverticulitis. He reports that his pain remains minimal. He continues to express an appetite and tolerated his advancement to clear liquids without issue. Further, his white blood cell count is now 7 from 9.3 yesterday. Therefore today plan for hi m to advance to a full liquid diet. We will resume his home medications along with this and transition him to oral antibiotics. If he does well with all of these transitions, he could be eligible for discharge as early as tomorrow, but this is pending evaluation with Dr. Kaufman who is due to return tomorrow. Charges/Coding Visit Charges Inpatient E&M: 99724 Subs Hosp L2
[2022-03-02 14:00] VITALS: BP 154/88; PULSE 70; RESP 16; TEMP 36.9; O2SAT 96
[2022-03-02] MEDS: Amox/Clavulanate 875 MG Tablet PO (18:40)
[2022-03-02 20:30] VITALS: BP 156/96; PULSE 67; RESP 18; TEMP 36.9; O2SAT 98
[2022-03-03 05:00] VITALS: BP 155/83; PULSE 67; RESP 16; TEMP 36.8; O2SAT 98
[2022-03-03] MEDS: Lisinopril 10 MG Tablet PO (07:42)
[2022-03-03] MEDS: Amox/Clavulanate 875 MG Tablet PO (07:44)
[2022-03-03] MEDS: Ensure Clear 120 ML Liquid PO (07:44)
[2022-03-03 08:25] VITALS: BP 167/106; PULSE 76; RESP 16; TEMP 37; O2SAT 96
[2022-03-03] MEDS: Pantoprazole Sodium 40 MG Tablet PO (08:44)
[2022-03-03 08:45] VITALS: BP 149/95
[2022-03-03 09:38] VITALS: BP 167/106; PULSE 76; RESP 16; TEMP 37; O2SAT 96
--- NOTE | 2022-03-03 11:50 | PN.SURG_ITS ---
Subjective Subjective Patient was doing well this morning reports several bowel movements. He is not having any lower abdominal pain. No nausea or vomiting. Objective Data Objective Data Vital Signs: Vital Signs Temp Pulse Resp BP Pulse Ox O2 Del Method 98.6 F 76 16 167/106 H 96 Room Air 03/03/22 09:38 03/03/22 09:38 03/03/22 09:38 03/03/22 09:38 03/03/22 09:38 03/03/22 09:38 Oxygen Delivery Method Room Air Weight: 184 lb 15.485 oz Body Mass Index (BMI) 25.0 Intake & Output: Intake and Output for Last 24 Hours 03/01/22 03/02/22 03/03/22 23:59 23:59 23:59 Intake Total 3256.75 / 3256.75 3107.92 / 3107.92 0 / 0 Balance 3256.75 / 3256.75 3107.92 / 3107.92 0 / 0 Lab / Micro Data Result Diagrams: 03/02/22 05:45 03/02/22 05:45 Assessment & Plan Assessment/Plan (1) Diverticulitis of colon with perforation: PLAN: Patient seems to be doing well. His white count has returned to normal. He has been transitioned over to oral antibiotics. I will start a transitional diet and if he tolerates this I will discharge him home this afternoon. aZin Kaufman MD Pager: [facility] [address] [place] [address], [address] [place] [address] Office:
--- NOTE | 2022-03-03 11:51 | DS.PCM_ITS ---
Providers Date of Admission: 02/27/22 Primary Care Physician: Dr. Debbie De La Cruz, DO Reason For Visit: DIVERTICULITIS WITH PERFORATION Diagnosis Discharge Diagnosis (1) Diverticulitis of colon with perforation: Status: Acute Code(s): K57.20 - Diverticulitis of large intestine with perforation and abscess without bleeding Plan: Patient seems to be doing well. His white count has returned to normal. He has been transitioned over to oral antibiotics. I will start a transitional diet and if he tolerates this I will discharge him home this afternoon. Zain Kaufman MD Pager: [facility] [address] [place] [address], [address] [place] [address] Office: Medications at Discharge Home Medications ascorbic acid (vitamin C) 500 mg capsule,extended release (Vitamin C) 500 mg PO DAILY supplement 07/07/20 lisinopril 10 mg tablet 10 mg PO bp 07/07/20 amoxicillin 875 mg-potassium clavulanate 125 mg tablet 1 tab PO BID 10 days #20 tabs 03/03/22 Hospital Course Summary of Care Provided Hospital Course: The patient was admitted with diverticulitis of the sigmoid colon with microperforation. He was admitted and started on IV antibiotics and several days later after the pain subsided and his white count returned normal he was started on a diet. After he tolerated clear liquids and full liquids he was advanced to transitional diet. He was then discharged home and he will follow- up with me and discuss follow-up colonoscopy. Weight / BMI Weight Weight: 184 lb 15.485 oz Body Mass Index (BMI) 25.0 ABG / Lab / Microbiology Data Result Diagrams: 03/02/22 05:45 03/02/22 05:45 D/C Instructions Discharge Diet: - (Transitional diet for 2 weeks and then return to normal diet) Discharge Activity: Return to Normal Activity Weight Bearing Status: Weight bearing as tolerated Lifting Restrictions: none Call your doctor if your incision/area has: Increased Pain/ Swelling Call your doctor if you observe: Fever of 101 or Higher and Inability to have a bowel movement Please Follow Up With: Zain Kaufman MD When: Please call to schedule 4 week follow up appointment. [phone] Meaningful Use Info Meaningful Use Diagnoses (Choose all that apply): None applicable Discharge Plan Admission Admit Date/Time: 02/27/22 01:27 Attending Provider: Zain Kaufman Primary Care Provider: Debbie De La Cruz Discharge Orders/Prescriptions Prescriptions: New amoxicillin-pot clavulanate 875-125 mg Tablet 1 tab PO BID 10 Days Qty: 20 0RF Continued lisinopril 10 mg tablet 10 mg PO ascorbic acid (vitamin C) [Vitamin C] 500 mg capsule, extended release 500 mg PO DAILY Referrals / Follow Up: Debbie De La Cruz DO [Primary Care Provider] - (Follow-up with PCP for hypertension) Disposition Disposition (needs filled in before D/C Order can be placed): Home, Self Care
== END 2022-03-03 16:56 | disposition home or self-care (01) | DRG 392 ==
LOC: ED 02-27 01:44 → MS3 02-27 01:59
PROVIDERS: Surgery; Admitting Provider Surgery; Emergency Provider Emergency Medicine; PCP Internal Medicine; Visit Provider Surgery
DX: K57.20 Diverticulitis of large intestine with perforation and abscess without bleeding (principal); I10 Essential (primary) hypertension; K40.90 Unilateral inguinal hernia, without obstruction or gangrene, not specified as recurrent
CPT/HCPCS: 36415; 74177; 80048; 81001; 83735; 84100; 85025; 99285; J7030; J7050; Q9967; A4216; J2405

== ENCOUNTER 2022-04-25 08:30 | Day surgery (SDC) | payer MEDICARE, SELFPAY ==
[2022-04-24 11:00] VITALS: BP 109/76; BP 142/88; PULSE 94; RESP 18; O2SAT 94
--- NOTE | 2022-04-25 | IMM_PTH ---
PATIENT: ANA NOONAN LOC: EN U#:[id number] AGE/SX: 72/M ROOM: RE04/25/[address]: Dr. Zain Kaufman MD : 1950 BED: DIS: 04/25/2022 SPEC #: [id number] RECD: 04/28/22 13:18 STATUS: HUY REYoselin #: [id number] RIOS: 04/25/22 00:[address]: Zain Kaufman DEPT: IMMUNOHISTOCHEMISTRY RECD BY: Sugar Ledesma ENTERED: 04/28/22 13:18 SP TYPE: IMMUNO OTHR DR: Dr. Debbie De La Cruz, Tissues: A - Esophagus, NOS Procedures: P53 (initial) KI-67 (add) PHYSICIAN & INSTITUTION [place] [address] SPECIMEN INFORMATION: Tissue Source: A ? Esophageal ulcer Clinical Info: GERD, diverticulitis of colon with perforation Specimen Number: [id number] CPT code: 20304, 26170 METHODOLOGY: Deparaffinized sections of prefer/formalin-fixed tissue or PAP/DQ stained slides are incubated with monoclonal/polyclonal antibodies/oligonucleotide probes. Localization is made via biotin free immunoperoxidase method. Appropriate controls are performed and reacted as expected. Results on target cell population are indicated in the following table: RESULTS: ANTIBODY / CLONE RESULT Block A P53 (DO-7) negative Ki-67 (30-9) positive, low These tests were developed and their performance characteristics determined by [facility]. They may not have been cleared or approved by the U.S. Food and Drug Administration. The FDA has determined that such clearance or approval is not necessary. The above immunohistochemical/dualISH markers are ordered and reviewed by the Pathologist. INTERPRETATION: A. Esophageal ulcer, biopsy: No evidence of dysplasia. AM:raven 04/29/2022
[2022-04-25 09:03] VITALS: BP 142/88; PULSE 74; RESP 18; TEMP 35.9; O2SAT 99; BMI 25.1
[2022-04-25] MEDS: Lactated Ringers 1,000 ML 15 ML IV (09:08)
--- NOTE | 2022-04-25 10:00 | EGD_PTH ---
PATIENT: ANA NOONAN LOC: EN U#:[id number] AGE/SX: 72/M ROOM: RE04/25/[address]: Dr. Zain Kaufman MD : 1950 BED: DIS: 04/25/2022 SPEC #: [id number] RECD: 04/25/22 12:12 STATUS: HUY REYoselin #: [id number] RIOS: 04/25/22 10:[address]: Zain Kaufman DEPT: SURGICAL PATHOLOGY RECD BY: Yoselyn Miller ENTERED: 04/25/22 13:18 SP TYPE: EGD BIOPSY OT DR: Dr. Debbie De La Cruz DO Tissues: A - Esophagus, NOS B - Esophagus, NOS Procedures: Special Stain Group II Surgery Specimen Level IV Alcian Blue/PAS (control) HEADER OPERATION: Colonoscopy, EGD ([facility]) with biopsy PRE-OP DIAGNOSIS: GERD, diverticulitis of colon with perforation TISSUE SUBMITTED: A ? Esophageal ulcer, B ? Gastroesophageal junction MICROSCOPIC DIAGNOSIS A. Esophageal ulcer, biopsy: Ulceration with associated acute and chronic inflammation and fibrinopurulent material. Epithelial changes, favor reactive. Extensive intestinal metaplasia. No evidence of dysplasia. See comment. B. Gastroesophageal junction, biopsy: Mild chronic inflammation. 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 No evidence of dysplasia. See comment. AM:raven 04/28/2022 COMMENT A. Alcian blue/PAS stain with matched control supports the above diagnosis. Immunohistochemistry ([id number]) for P53 and Ki-67 will be performed and results will be reported separately. B. Alcian blue/PAS stain with matched control supports the above diagnosis. Case has been reviewed in consultation with Dr. Dalton who concurs with the above diagnosis. IDC:[id number] MICROSCOPIC DESCRIPTION Slides are reviewed. GROSS DESCRIPTION A - Received in fixative is one container labeled with the patient's name and designated esophageal ulcer. The specimen consists of one irregular fragment of light álvarez soft tissue that measures 0.5 x 0.3 x 0.1 cm. The specimen is totally submitted in one cassette. B - Received in fixative is one container labeled with the patient's name and designated GE junction. The specimen consists of two irregular fragments of light álvarez soft tissue that in aggregate measure 0.6 x 0.6 x 0.1 cm. The specimen is totally submitted in one cassette. / AM:raven 04/25/2022 TC:3 CPT: 52805 x2, 81893 x2
--- NOTE | 2022-04-25 10:07 | PCM.HP.BLA ---
History and Physical Date of Admission: 04/25/22 Intake Vital Signs ? 03/02/2210:05 Height 6 ft 0.05 in Intake Visit Reasons:?1 M FU DIVERTICULITIS Chief Complaint: LLQ abdominal pain Allergies No Known Allergies Allergy (Verified 02/26/22 21:14) PFSH Medical History?(Updated 04/02/22 @ 15:[address] Zain Kaufman MD) Chest pain Diverticulitis of colon with perforation HTN (hypertension) Irregular heart beat Non-smoker Sleep apnea Surgical History? H/O wrist surgery History of hernia repair Family History? Father Myocardial infarction Social History? Smoking Status:? Never smoker alcohol intake:? never HPI HPI HPI: Patient is a 72-year-old male here following up after diverticulitis.? He had diverticulitis in February.? At that time there was microperforation.? Patient reports he has been having normal bowel movements and is not having any abdominal pain at this time.? Denies any fevers or chills.? He does also note that he has been having reflux for many years.? He has never had an EGD. ROS General General: No weight change or fatigue Endo Endocrine: No thyroid disease Skin Skin: No rash Musc Musculoskeletal: No back problems Cardio Cardiovascular: No pacemaker, atrial fibrillation or high blood pressure Psych Psychiatric: No depression Resp Respiratory: No shortness of breath Gastro Gastrointestinal: No abdominal pain, No diarrhea, No constipation, No blood in stool and No gallbladder problem Jorge A Hematologic: No blood disorders Neuro Neurologic: No burning sensations Exam Const General: cooperative Orientation: alert and oriented x3 HENMT Head: normal to inspection Neck Neck: normal visual inspection and full ROM Chest Chest palpation & inspection: normal inspection of the chest Resp Effort & Inspection: normal respiratory effort Auscultation: clear to auscultation bilaterally Cardio Rate: regular rate Rhythm: regular rhythm GI Inspection: non-distended Palpation: soft and nontender Skin General: no rashes or lesions noted Neuro General: patient alert and patient oriented x3 Extrem General: full ROM Psych Appearance: grossly normal Mental Status: mental status grossly normal Assessment and Plan Assessment and Plan (1) GERD (gastroesophageal reflux disease): ?Status:?Acute (2) Diverticulitis of colon with perforation: ?Status:?Inactive ? ? ? Orders: Orders Colonoscopy Today ? ? EGD Today K21.9 - Gastro-esophageal reflux disease without esophagitis ? Plan Patient had perforated diverticulitis about a month ago.? He has been doing well since.? This was treated nonoperatively.? Patient has never had a colonoscopy he is only done screening Cologuard's.? Patient also reports a long history of GERD and is requesting EGD to evaluate for esophagitis.? I will plan on performing a colonoscopy.? After colonoscopy is complete he will follow-up and we will discuss possibility of sigmoid colectomy. I explained endoscopy in detail to the patient.? I explained the risks including but not limited to stroke or heart attack with anesthesia, perforation of the GI tract, bleeding, infection.? I explained that any of these could necessitate further emergency surgery.? The patient understands and all questions were answered sufficiently.? The patient wishes to proceed with procedure. Zain Kaufman MD Pager: [facility] [address] [place] [address], [address] [place] [address] Office: I have examined the patient and the H&P has been reviewed. There are no clinical changes since date of exam.
[2022-04-25 10:53] VITALS: BP 142/88; BP 97/61; PULSE 79; RESP 16; TEMP 36.6; O2SAT 93
[2022-04-25 10:55] VITALS: BP 106/68; BP 142/88; PULSE 78; RESP 16; O2SAT 92
--- NOTE | 2022-04-25 10:56 | OP.CCLET_ITS ---
04/25/2022 Debbie De La Cruz [address] [place] [address] Re : Upper GI endoscopy procedure for Tim Tsai Dear Dr. De La Cruz This procedure was performed on Monday, April 25, 2022. My impressions and recommendations are as follows: Impressions : - Esophageal mucosal changes suspicious for long-segment Moss's esophagus. Biopsied. - Non-bleeding esophageal ulcer. Biopsied. - Normal stomach. - Normal examined duodenum. Recommendations : - Discharge patient to home. - Resume previous diet. - Continue present medications. - Use Prilosec (omeprazole) 40 mg PO daily. - Refer to a care advocate at appointment to be scheduled. My findings are described in the full procedure note, which is enclosed. If I can be of further assistance, please feel free to contact me at Doctor phone number(s): , Work: . Sincerely, Zain Kaufman MD 04/25/2022 10:56:14 AM This report has been signed electronically.
--- NOTE | 2022-04-25 10:56 | OP.EGD_ITS ---
Patient Name: Tim Tsai Procedure Date: 04/25/2022 10:13 AM Date of : 1950 Age: 72 Procedure: Upper GI endoscopy Indications: Gastro-esophageal reflux disease Providers: Zain Kaufman MD Medicines: Monitored Anesthesia Care Patient Profile: This is a 72 year old male. Refer to note in patient chart for documentation of history and physical. Complications: No immediate complications. Procedure: Pre-Anesthesia Assessment: - Prior to the procedure, a History and Physical was performed, and patient medications and allergies were reviewed. The patient's tolerance of previous anesthesia was also reviewed. The risks and benefits of the procedure and the sedation options and risks were discussed with the patient. All questions were answered, and informed consent was obtained. Prior Anticoagulants: The patient has taken no previous anticoagulant or antiplatelet agents. After reviewing the risks and benefits, the patient was deemed in satisfactory condition to undergo the procedure. After obtaining informed consent, the endoscope was passed under direct vision. Throughout the procedure, the patient's blood pressure, pulse, and oxygen saturations were monitored continuously. The Endoscope was introduced through the mouth, and advanced to the fourth part of duodenum. The upper GI endoscopy was accomplished without difficulty. The patient tolerated the procedure well. Scope In: 10:27:16 AM Scope Out: 10:33:06 AM Total Procedure Duration Time 0 hours 5 minutes 50 seconds Findings: There were esophageal mucosal changes suspicious for long-segment Moss's esophagus present in the lower third of the esophagus. The maximum longitudinal extent of these mucosal changes was 11 cm in length. This was biopsied with a cold forceps for histology. There was a long segment of stomach within the hiatal hernia. The diaphragm appeared to be at 40 cm. unsure as to the exact GE junction due to the long segment Barretts but the normal esophageal mucosa did not start until 28 cm from the incisors One superficial esophageal ulcer with no bleeding and no stigmata of recent bleeding was found. Biopsies were taken with a cold forceps for histology. The stomach was normal. The examined duodenum was normal. A medium-sized hiatal hernia was present. Impression: - Esophageal mucosal changes suspicious for long-segment Moss's esophagus. Biopsied. - Non-bleeding esophageal ulcer. Biopsied. - Normal stomach. - Normal examined duodenum. Recommendation: - Discharge patient to home. - Resume previous diet. - Continue present medications. - Use Prilosec (omeprazole) 40 mg PO daily. - Refer to a leadlighter at appointment to be scheduled. Procedure Code(s): --- Professional --- 21973, Esophagogastroduodenoscopy, flexible, transoral; with biopsy, single or multiple Diagnosis Code(s): --- Professional --- K22.8, Other specified diseases of esophagus K22.10, Ulcer of esophagus without bleeding K21.9, Gastro-esophageal reflux disease without esophagitis CPT copyright 2017 [employer]. All rights reserved. The codes documented in this report are preliminary and upon operations officer review may be revised to meet current compliance requirements. Zain Kaufman MD 04/25/2022 10:56:14 AM This report has been signed electronically. Number of Addenda: 0 Note Initiated On: 04/25/2022 10:13 AM
--- NOTE | 2022-04-25 11:00 | OP.COLON_ITS ---
Patient Name: Tim Tsai Procedure Date: 04/25/2022 10:33 AM Date of : 1950 Age: 72 Procedure: Colonoscopy Indications: Follow-up of diverticulitis Providers: Zain Kaufman MD Medicines: Monitored Anesthesia Care Patient Profile: This is a 72 year old male. Refer to note in patient chart for documentation of history and physical. Last Colonoscopy: 5 years ago. Complications: No immediate complications. Procedure: Pre-Anesthesia Assessment: - Prior to the procedure, a History and Physical was performed, and patient medications and allergies were reviewed. The patient's tolerance of previous anesthesia was also reviewed. The risks and benefits of the procedure and the sedation options and risks were discussed with the patient. All questions were answered, and informed consent was obtained. Prior Anticoagulants: The patient has taken no previous anticoagulant or antiplatelet agents. After reviewing the risks and benefits, the patient was deemed in satisfactory condition to undergo the procedure. After I obtained informed consent, the scope was passed under direct vision. Throughout the procedure, the patient's blood pressure, pulse, and oxygen saturations were monitored continuously. The Colonoscope was introduced through the anus and advanced to the cecum, identified by appendiceal orifice and ileocecal valve. The colonoscopy was performed without difficulty. The patient tolerated the procedure well. The quality of the bowel preparation was good. Scope In: 10:37:50 AM Scope Withdrawal Time 0 hours 7 minutes 28 seconds Scope Out: 10:50:37 AM Total Procedure Duration Time 0 hours 12 minutes 47 seconds Findings: The entire examined colon appeared normal on direct and retroflexion views. Many small-mouthed diverticula were found in the sigmoid colon. The exam was otherwise without abnormality on direct and retroflexion views. Impression: - The entire examined colon is normal on direct and retroflexion views. - Diverticulosis in the sigmoid colon. - The examination was otherwise normal on direct and retroflexion views. - No specimens collected. Recommendation: - Discharge patient to home. - Resume previous diet. - Continue present medications. - Repeat colonoscopy in 10 years for screening purposes. Procedure Code(s): --- Professional --- 49537, Colonoscopy, flexible; diagnostic, including collection of specimen(s) by brushing or washing, when performed (separate procedure) Diagnosis Code(s): --- Professional --- K57.32, Diverticulitis of large intestine without perforation or abscess without bleeding K57.30, Diverticulosis of large intestine without perforation or abscess without bleeding CPT copyright 2017 [employer]. All rights reserved. The codes documented in this report are preliminary and upon inspector hot forgings review may be revised to meet current compliance requirements. Zain Kaufman MD 04/25/2022 11:00:32 AM This report has been signed electronically. Number of Addenda: 0 Note Initiated On: 04/25/2022 10:33 AM
--- NOTE | 2022-04-25 11:02 | OP.CCLET_ITS ---
04/25/2022 Debbie De La Cruz [address] [place] [address] Re : Colonoscopy procedure for Tim Coeva [facility] Dear Dr. De La Cruz This procedure was performed on Monday, April 25, 2022. My impressions and recommendations are as follows: Impressions : - The entire examined colon is normal on direct and retroflexion views. - Diverticulosis in the sigmoid colon. - The examination was otherwise normal on direct and retroflexion views. - No specimens collected. Recommendations : - Discharge patient to home. - Resume previous diet. - Continue present medications. - Repeat colonoscopy in 10 years for screening purposes. My findings are described in the full procedure note, which is enclosed. If I can be of further assistance, please feel free to contact me at Doctor phone number(s): , Work: . Sincerely, Zain Kaufman MD 04/25/2022 11:00:32 AM This report has been signed electronically.
[2022-04-25 11:05] VITALS: BP 116/78; BP 142/88; PULSE 94; RESP 18; TEMP 36.4; O2SAT 96
[2022-04-25 11:36] VITALS: BP 142/88
== END 2022-04-25 12:14 | disposition home or self-care (01) ==
LOC: EN 08:39 → AC 08:39
PROVIDERS: PCP Internal Medicine; Referring Provider Internal Medicine; Visit Provider Surgery
PROC: 0DJD8ZZ Inspection of Lower Intestinal Tract, Via Natural or Artificial Opening Endoscopic (ICD-10-PCS; CPT 45378; principal; 2022-04-25 09:55)
DX: K22.70 Barrett's esophagus without dysplasia (principal); K57.30 Diverticulosis of large intestine without perforation or abscess without bleeding; K44.9 Diaphragmatic hernia without obstruction or gangrene; I10 Essential (primary) hypertension; G47.30 Sleep apnea, unspecified; Z79.899 Other long term (current) drug therapy; Z87.891 Personal history of nicotine dependence
CPT/HCPCS: 45378; 43239; 88305; 88313; 88341; 88342; J7120; J2405

== ENCOUNTER 2022-08-30 13:23 | Emergency (ER) | payer MEDICARE, SELFPAY ==
[2022-08-30 13:26] VITALS: BP 156/110; PULSE 62; RESP 16; TEMP 36.2; O2SAT 97; BMI 25.7
--- NOTE | 2022-08-30 13:33 | RAD_ITS ---
STUDY: X-RAY CHEST REASON FOR EXAM: Male, 72 years old. Chest pain TECHNIQUE: Single AP portable view of the chest. COMPARISON: None. FINDINGS: EKG leads overlie the chest The lungs are clear and expanded. There is no demonstrated pleural abnormality. Normal size heart. Normal mediastinum and bharati. Normal visualized pulmonary arteries. Normal visualized aortic arch and descending thoracic aorta. Normal visualized thoracic spine. Normal visualized ribs, clavicles, and shoulders. There is no demonstrated abnormality of the visualized soft tissue structures of the upper abdomen. RAD/Chest 1 View (Portable) IMPRESSION: Normal x-ray examination of the chest. Electronically Signed: Madan Zafar MD at 14:29 EDT ,
--- NOTE | 2022-08-30 13:33 | EKG12_ITS ---
Test Reason : CHEST PRESSURE Blood Pressure : / mmHG Vent. Rate : 061 BPM Atrial Rate : 061 BPM P-R Int : 170 ms QRS Dur : 088 ms QT Int : 388 ms P-R-T Axes : -03 -48 024 degrees QTc Int : 390 ms Normal sinus rhythm Left axis deviation Abnormal ECG Confirmed by YAZMIN ALEMAN, JACKELYN ([id number]), newspaper copy editor CANDIDA HUGHES ([id number]) on 09/01/2022 11:18:36 AM Referred By: KRYSTYNA Confirmed By:JACKELYN ARCE MD
--- NOTE | 2022-08-30 13:34 | ED.VIS.CHEST ---
HPI History of Present Illness Chief Complaint: Chest Pain Informant: patient Onset/Context/Timing Onset: Yesterday Activity at onset: gradual Timing: Intermittent Quality: Positive for Dull Location: Right Chest and Left Chest Current Severity: Gone Maximum Severity: Mild Worsened By: Nothing; Not Worsened By Exertion Relieved By: Nothing Associated Symptoms: Negative for Nausea, Vomiting, Diaphoresis, Dyspnea, Cough, Fever, Lightheadedness, Acid Reflux or Palpitations Narrative Narrative: 72-year-old male history of hypertension and Moss's esophagitis with reflux. He is on lisinopril for his blood pressure and Prilosec for his reflux. 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 He has had prior negative stress test. He has never had a DVT or PE. They have had recent travel around [facility]. Said he had a long driving trip. States yesterday had some nonexertional chest discomfort. No dyspnea. No hemoptysis. No leg pain or swelling. He has not been recently ill. He has had symptoms like this before. Prior Similar Symptoms: Yes Recent Illness/Hospitalization: No CVD Risk Factors: Positive for Hypertension; Negative for Diabetes or Smoking PE Risk Factors: Positive for Recent Travel/Surgery; Negative for Recent Immobilization, Prior DVT or PE, Cancer or OCP + Smoking + >/=35 TAD Risk Factors: Negative for Marfan's Syndrome [facility] Medical History Alcohol use Arthritis Cardiology follow-up encounter Diverticulitis of colon with perforation Former smoker Heartburn History of stress test HTN (hypertension) Irregular heart beat Leg cramps Restless legs Wears glasses Home Medications ascorbic acid (vitamin C) 500 mg capsule,extended release (Vitamin C) 500 mg PO DAILY supplement 07/07/20 [History Last Taken 02/20/22 08:00] lisinopril 10 mg tablet 10 mg PO DAILY bp 07/07/20 [History Last Taken 04/25/22 07:30] cholecalciferol (vitamin D3) 25 mcg (1,000 unit) capsule (Vitamin D3) 25 mcg PO DAILY 04/23/22 [History Last Taken Unknown] omega 5-btx-sxd-fish oil 1,000 mg (120 mg-180 mg) capsule (Fish Oil) 1 cap PO DAILY 04/23/22 [History Last Taken 04/20/22] omeprazole 40 mg capsule,delayed release 40 mg PO DAILY #90 caps 07/14/22 [Rx Last Taken Unknown] Allergy/AdvReac Type Severity Reaction Status Date / Time No Known Allergies Allergy Verified 08/30/22 13:30 Family History Father Myocardial infarction Surgical History H/O wrist surgery History of hernia repair Social History Smoking Status: Former smoker alcohol intake: never ROS ROS ED ROS Narrative Atypical nonexertional chest discomfort. Review of Systems ROS Unobtainable: Denies due to encephalopathy Constitutional Constitutional ED: Denies chills or fever(s) Eyes Eyes: Reports none ENT ENT ED: Denies ear pain or rhinorrhea Cardiovascular Cardiovascular: Reports as per HPI and chest pain; Denies palpitations or racing heartbeat Respiratory/Chest Respiratory/Chest: Denies cough or dyspnea Gastrointestinal Gastrointestinal: Denies abdominal pain, constipation, diarrhea, melena, nausea or vomiting Genitourinary Genitourinary ED: Denies dysuria Musculoskeletal Musculoskeletal: Denies arthralgias Integumentary Denies abscess Neurologic Neurologic: Denies headache(s) Psychiatric Psychiatric: Denies anxiety Endocrine Endocrinology: Denies cold intolerance Hematologic/Lymphatic Hematologic/Lymphatic: Denies easy bleeding Allergic/Immunologic Allergic/Immunologic ED: Denies mouth swelling EXAM Physical Exam Narrative Exam Narrative: 72-year-old male no acute distress. Sitting upright in bed. Clinically looks well. present at bedside. Vital signs are stable afebrile. Pulse ox 97% on room air no hypoxia. H EENT exam unremarkable. Neck nontender no JVD. No lymphadenopathy. Lungs clear to auscultation bilaterally. Heart regular rate and rhythm rate about 60 no murmur. Chest wall nontender. Abdomen soft nontender. Moving all 4 extremities. Equal symmetrical radial pulses. Normal clarity specialists strength. Dorsi plantarflexion intact. Calves are nontender without edema nor cords. Back nontender. Neurologically is awake and alert with no focal motor deficits. Normal exam. Const Vital Signs: 08/30/22 13:26 08/30/22 13:39 08/30/22 14:54 Temperature 97.2 F L Temperature Source Temporal Pulse Rate 62 60 Respiratory Rate 16 14 Respiratory Effort Normal Respiratory Pattern Normal Blood Pressure 156/110 H 133/84 H Blood Pressure Mean 125 100 Pulse Ox 97 96 Oxygen Delivery Method Room Air Positive well nourished and well developed; Negative for obese, cachectic, contractures or unkempt General Appearance ED: well developed and NAD; Negative for unkempt, cachectic, contractures or pallor Nutritional Appearance: Negative for cachectic or obese HEENT Reports moist mucous membranes normocephalic and atraumatic; Negative for trauma or tenderness Eyes PERRL and EOMs intact bilaterally General Eye ED: Negative for pale conjunctiva or scleral icterus Neck no lymphadenopathy, supple and no JVD General: Negative for tenderness Chest Wall inspection of chest normal and palpation of chest normal Chest: Negative for tenderness Resp normal respiratory effort and clear to auscultation bilaterally Effort and Inspection: Negative for respiratory distress Auscultation: Negative for rales, rhonchi or wheezes Cardio regular rate, regular rhythm, S1 normal heart sound, S2 normal heart sound and no murmurs Rate: Negative for bradycardia Rhythm: Negative for abnormal rhythm Peripheral Pulses: pulses 2+ throughout GI normal to inspection, nondistended, normoactive bowel sounds, soft to palpation, non-tender, non-distended and no masses Auscultation: Negative for hyperactive bowel sounds Palpation: Negative for splenomegaly or mass Back/Spine no CVA tenderness and no thoracic nor lumbar tenderness General Back: Negative for CVA tenderness Cervical Spine: Negative for cervical spine tenderness Extremity normal to inspection General Extremety ED: Negative for edema, pulses abnormal or tenderness General Extremity: Negative for edema or pulses abnormal Neuro oriented x3 and CN's II-XII intact bilaterally Sensorium / Orientation: awake, alert, oriented to person, oriented to place and oriented to time; Negative for confused or lethargic Motor Exam: strength 5/5 throughout Psych mental status grossly normal Appearance: Negative for unkempt Attitude: No agitated Mood & Affect: Negative for depressed, anxious or tearful Skin no rashes or lesions noted and no wounds General Skin Exam: Negative for jaundice or pallor Rashes: No rashes noted Trauma: Negative for abrasion or laceration Heart Score History: Slightly/Non-Suspicious ECG: Normal Age: >/= 65 years Risk Factors: 1 or 2 Risk Factors Troponin: </= Normal Limit Score: 3 MDM MDM MDM Narrative Medical decision making narrative: 72-year-old male with very atypical nonexertional chest pain. Clinically I think this is unlikely to be cardiac. He has had prior negative cardiac work-ups but is never had a heart cath. Does not sound like he needs a heart cath. He also travels a lot so a D-dimer be obtained along with his cardiac work-up but clinically this does not sound like a blood clot either. He has no leg pain or swelling. His exam is totally benign. Repeat exam at 2:30 PM patient doing well. He and I and his talked at length about his test results and outpatient follow-up. I explained to both him that this did not sound cardiac. His repeat exam is normal. He will be discharged home. History & Record Review Discussion w/independent historian: Patient and Family Additional record(s) reviewed:: Prior inpatient record, Prior outpatient record, Prior ED visit and Prior labs Lab Data Attestation: I reviewed the patient's lab results. Lab results narrative: CBC normal. White count of 7. H&H is 16 and 49. Platelets 263. D-dimer is normal at 0.38. Electrolytes are normal. Gap of 2. BUN of 22 creatinine of 1. Glucose 95. Troponin is normal at 6. Chest x-ray shows no acute process. Labs: Laboratory Results - last 24 hr 08/30/22 08/30/22 08/30/22 13:40 13:40 13:40 WBC 7.4 RBC 5.29 Hgb 16.1 Hct 49.2 MCV 93.0 MCH 30.4 MCHC 32.7 RDW Std Deviation 44.1 H RDW Coeff of Matthew 13.0 Plt Count 263 MPV 9.3 Immature Gran % (Auto) 0.300 Neut % (Auto) 62.5 Lymph % (Auto) 23.7 Bergen % (Auto) 10.6 H Eos % (Auto) 2.6 Baso % (Auto) 0.3 Absolute Neuts (auto) 4.6 Absolute Lymphs (auto) 1.75 Nucleated RBC % 0 D-Dimer Quant (PE/DVT) 0.38 Sodium 137 Potassium 4.3 Chloride 105 Carbon Dioxide 30.0 Anion Gap 2 L BUN 22 H Creatinine 1.06 Estim Creat Clear Calc 70.16 Est GFR (MDRD) Af Amer 88 Est GFR (MDRD) Non-Af 73 BUN/Creatinine Ratio 20.8 H Glucose 95 Calcium 9.6 Troponin I High Sens 6 Radiography Chest X-Ray - ED: 1 View, Read by ED Physician, Normal, Heart, Lungs, Mediastinum, Bony Structures, No Acute Disease and Chronic Changes Diagnostic Testing: Clinical Impression(s) from Imaging Studies Chest X-Ray 08/30/22 13:33 IMPRESSION: Normal x-ray examination of the chest. Electronically Signed: Madan Zafar MD at 14:29 EDT , Chest x-ray, portable, single view, interpreted by myself shows no acute abnormality. Normal cardiac silhouette. Normal mediastinum. No pleural effusions. No infiltrates. Rhythm Strip Rhythm Strip: Sinus Rhythm Rate: 61 EKG Initial EKG: Attestation: I personally reviewed and interpreted this EKG as follows: Interpretation: Sinus Rhythm and No Acute Injury Pattern Comments: Normal sinus rhythm at a rate of 61. No acute signs of TX or ischemia. No significant dysrhythmia. Prior EKG tracings: not available for review Discharge Plan Triage Chief Complaint: Chest Pain ED Provider: John Hernandez Dx/Rx/DC Orders Clinical Impression: Chest pain, History of gastroesophageal reflux (GERD), History of essential hypertension Instructions: ED Chest Pain, Uncertain Cause Prescriptions: No Action lisinopril 10 mg tablet 10 mg PO DAILY ascorbic acid (vitamin C) [Vitamin C] 500 mg capsule, extended release 500 mg PO DAILY omeprazole 40 mg capsule,delayed release(DR/EC) 40 mg PO DAILY Qty: 90 3RF omega 0-woj-cpy-fish oil [Fish Oil] 1,000 mg (120 mg-180 mg) Capsule 1 cap PO DAILY cholecalciferol (vitamin D3) [Vitamin D3] 25 mcg (1,000 unit) Capsule 25 mcg PO DAILY Primary Care Provider: Debbie De La Cruz Referrals: Debbie De La Cruz, [Primary Care Provider] - As soon as possible Activity Restrictions/Additional Instructions: Call and follow-up with your primary care physician. If felt to be necessary she can get you set up for further testing. Disposition Disposition: Home, Self Care
[2022-08-30 13:58] LABS: Absolute Lymphocyte Count 1.75 X10^3/uL (0.83-4.51); Absolute Neutrophil Count 4.6 X10^3/uL (2.0-7.7); Basophil# 0.02 X10^3/uL; Basophil% 0.3 % (0-1); Eosinophil# 0.19 X10^3/uL; Eosinophils% 2.6 % (0-5); Hematocrit 49.2 % (40-54); Hemoglobin 16.1 g/dL (13.0-16.5); Lymphocyte # 1.75 X10^3/ul (0.83-4.51); Lymphocyte % 23.7 % (19-41); Mean Corp Hgb Conc 32.7 g/dL (32-36); Mean Corpuscular Hgb 30.4 pg (27.0-32.0); Mean Platelet Vol. 9.3 fl (6.2-12.0); Monocyte# 0.78 X10^3/uL; Monocyte% 10.6 % (0-10); NRBC Flagged by Analyzer 0 % (0-5); Neutrophil # 4.63 X10^3/uL (2.7-7.7); Neutrophil % 62.5 % (47-70); Platelet Count 263 K/mm3 (150-450); RBC Distribution Width SD 44.1 fl (35.1-43.9); Red Blood Count 5.29 M/mm3 (4.6-6.2); White Blood Count 7.4 K/mm3 (4.4-11.0)
[2022-08-30 14:06] LABS: D-Dimer Quantitative (DVT/PE) 0.38 FEU/ug/m (0.27-0.49)
[2022-08-30 14:11] LABS: Anion Gap 2 (5-15); BUN 22 mg/dL (7-18); BUN/Creat Ratio 20.8 RATIO (10-20); Calcium,Total 9.6 mg/dL (8.5-10.1); Chloride 105 mmol/L (98-107); Creatinine, Serum 1.06 mg/dL (0.70-1.30); EST Glomerular Filtration Rate 73 mL/min (>60); Est Glom Filt Rate - Afr Amer 88 mL/min (>60); Estimated Creatinine Clearance 70.16 ml/min; Glucose 95 mg/dL (74-106); Potassium 4.3 mmol/L (3.5-5.1); Sodium Level 137 mmol/L (136-145); Troponin-I HS 6 pg/mL (3.0-78.0)
[2022-08-30 14:54] VITALS: BP 133/84; PULSE 60; RESP 14; O2SAT 96
[2022-08-30 15:08] VITALS: BP 140/78
== END 2022-08-30 15:09 | disposition home or self-care (01) ==
PROVIDERS: Emergency Provider Emergency Medicine; PCP Internal Medicine; Visit Provider Emergency Medicine
DX: R07.9 Chest pain, unspecified (principal); I10 Essential (primary) hypertension; Z87.891 Personal history of nicotine dependence; K21.9 Gastro-esophageal reflux disease without esophagitis
CPT/HCPCS: 71045; 80048; 84484; 85025; 85379; 93005; 99284; A4216

== ENCOUNTER → 2025-01-23 | Outpatient (CLI) | payer MEDICARE, SELFPAY ==
--- NOTE | 2025-01-23 13:45 | ECHOD_ITS ---
Reason For Study Reason For Study: AFib/Flutter Procedure This was a 2D Doppler, Color Flow transthoracic echocardiogram. Exam performed in department. Left Ventricle Normal LV size. Left ventricular systolic function is normal. The left ventricular ejection fraction is 60 %. No regional wall motion abnormalities noted. Right Ventricle Normal RV size. Normal systolic function. Atria The left atrium is moderately enlarged. The right atrium is mildly enlarged. Mitral Valve Normal mitral valve. Tricuspid Valve Normal tricuspid valve. Mild tricuspid valve insufficiency. Pulmonary artery systolic pressure is 22 mmHg. Pulmonic Valve Normal pulmonic valve. Great Vessels Mildly dilated aortic root. The pulmonary artery is normal size. Inferior vena cava collapse with respiration. Pericardium/Pleural No pericardial effusion. MMode/2D Measurements & Calculations LVIDd: 4.6 cm IVSd: 1.2 cm Ao root diam: 3.9 cm LVIDs: 3.0 cm LVPWd: 1.0 cm RVDd: 3.3 cm FS: 33.2 % LAV(MOD-bp): 96.3 ml LVAd ap4: 23.8 cm2 LVAd ap2: 27.5 cm2 LAV(MOD-bp) Indexed: 45.7 ml/m2 LVLd ap4: 7.5 cm LVLd ap2: 7.6 cm LAV(MOD-sp2): 90.1 ml EDV(MOD-sp4): 64.2 ml EDV(MOD-sp2): 81.3 ml LAV(MOD-sp4): 99.0 ml EDV(sp4-el): 64.0 ml EDV(sp2-el): 84.7 ml LVAs ap4: 14.6 cm2 LVAs ap2: 15.5 cm2 LVLs ap4: 6.9 cm LVLs ap2: 6.3 cm ESV(MOD-sp4): 27.2 ml ESV(MOD-sp2): 31.3 ml ESV(sp4-el): 26.2 ml ESV(sp2-el): 32.0 ml EF(MOD-sp4): 57.6 % EF(MOD-sp2): 61.5 % EF(sp4-el): 59.0 % SV(MOD-sp4): 36.9 ml SV(MOD-sp2): 50.0 ml SV(sp4-el): 37.8 ml SI(MOD-sp4): 17.5 ml/m2 SI(MOD-sp2): 23.7 ml/m2 LA A4 area: 29.3 cm2 LA dimension(2D): 4.1 cm RA A4 area: 20.3 cm2 TAPSE: 1.6 cm Doppler Measurements & Calculations MV E max cesia: 92.3 cm/sec MV V2 max: 100.2 cm/sec Ao V2 max: 107.9 cm/sec MV max P.0 mmHg Ao max P.7 mmHg MV V2 mean: 57.1 cm/sec Ao V2 mean: 77.0 cm/sec MV mean P.6 mmHg Ao mean P.7 mmHg MV V2 VTI: 20.3 cm Ao V2 VTI: 20.8 cm AV (velocity ratio): 0.65 LV V1 max: 80.7 cm/sec MR max cesia: 485.3 cm/sec PA V2 max: 108.4 cm/sec LV V1 max P.6 mmHg MR max P.2 mmHg PA V2 mean: 79.4 cm/sec LV V1 mean P.2 mmHg MR mean cesia: 372.2 cm/sec LV V1 mean: 50.8 cm/sec MR mean P.8 mmHg LV V1 VTI: 13.5 cm MR VTI: 151.7 cm TR max cesia: 210.5 cm/sec TR max P.2 mmHg ECHO/Echo Complete Interpretation Summary Normal LV size. Left ventricular systolic function is normal. The left ventricular ejection fraction is 60 %. The left atrium is moderately enlarged. The right atrium is mildly enlarged. Pulmonary artery systolic pressure is 22 mmHg. Ordering Physician: Lambert Dueñas Referring Physician: Lambert Dueñas Performed By: Sheldon Del Valle RCS
== END | disposition home or self-care (01) ==
LOC: CVS 13:44
PROVIDERS: PCP Internal Medicine; Referring Provider Internal Medicine Cardiovascular Disease; Visit Provider Internal Medicine Cardiovascular Disease
DX: R94.31 Abnormal electrocardiogram [ECG] [EKG] (principal); I10 Essential (primary) hypertension
CPT/HCPCS: 93306

== ENCOUNTER → 2025-02-01 | Outpatient (CLI) | payer MEDICARE, SELFPAY ==
--- NOTE | 2025-02-01 10:34 | RAD_ITS ---
PROCEDURE: CHEST PA AND LATERAL 02/01/2025 REASON FOR EXAM: A. FIB. DCCV SCHEDULED TECHNIQUE: Procedure Code: RADCXR Modality: DX Procedure: CHEST PA AND LATERAL COMPARISON: 08/30/2022 FINDINGS: Right midlung opacity may reflect atelectasis and/or pneumonia. No pleural effusion or pneumothorax. Cardiac silhouette is within normal limits. Calcified aortic arch. No acute fractures. RAD/Chest PA and Lateral IMPRESSION: Right midlung opacity may reflect atelectasis and/or pneumonia. Reading Location: [id number]
[2025-02-01 12:01] LABS: Anion Gap 11 (5-15); BUN 20 mg/dL (4-19); BUN/Creat Ratio 19.2 RATIO (10-20); Calcium,Total 9.9 mg/dL (7.6-11.0); Carbon Dioxide 28.6 mmol/L (21.0-32.0); Chloride 100 mmol/L (98-108); Glucose 96 mg/dL (70-99); Potassium 4.2 mmol/L (3.3-5.1)
== END | disposition home or self-care (01) ==
LOC: LAB 10:16
PROVIDERS: PCP Internal Medicine; Referring Provider Student in an Organized Health Care Education/Training Program; Visit Provider Student in an Organized Health Care Education/Training Program
DX: I48.91 Unspecified atrial fibrillation (principal)
CPT/HCPCS: 36415; 71046; 80048

== ENCOUNTER 2025-02-15 10:19 | Day surgery (SDC) | payer MEDICARE, SELFPAY ==
[2025-02-14 08:53] VITALS: BMI 26.2
--- NOTE | 2025-02-15 12:13 | PCM.OP.PRO2 ---
Bedside Procedural Bedside Procedure Information Date of Procedure: 02/15/25 Pre-Procedure Diagnosis: Atrial fibrillation Post-Procedure Diagnosis: Same Procedure Performed:: DC cardioversion Procedure Time Out: 12:04 Procedure Start Time: :06 Procedure Stop Time: :08 Special Medications: Intravenous propofol 40 mg Description of procedure: The patient was brought to cardiac catheterization lab in the postabsorptive nonsedated state. Informed consent was obtained. Patient was seen by Dr. Montilla of the critical care division. Anterior-posterior pads were applied. The patient was administered 40 mg of intravenous propofol. 200 J of biphasic DC cardioversion energy were applied with prompt reversal to sinus rhythm. Patient tolerated the procedure well. Procedure findings: Successful DC cardioversion from atrial fibrillation to sinus rhythm. Follow-up as per office protocol. Complications Complications: No
--- NOTE | 2025-02-15 12:28 | PCM.OP.PRO2 ---
Procedures Pulmonary Pulmonary Procedures /Diagnostic Testin Con Sedation Bedside Procedural Bedside Procedure Information Date of Procedure: 02/15/25 Description of procedure: CONSCIOUS SEDATION REPORT DATE OF SERVICE: February 15, 2025 BRIEF HISTORY OF PRESENT ILLNESS: The patient is a 74-year-old male who presented to [facility] to undergo an elective outpatient cardioversion due to underlying atrial fibrillation. The patient has never previously undergone a cardioversion. He denied a history of any anesthetic complications. The patient has never been diagnosed with obstructive sleep apnea. He is a lifelong non-smoker. The patient is systemically anticoagulated on Eliquis. His last surface echocardiogram revealed an ejection fraction of approximately 60%. PHYSICAL EXAMINATION: VITAL SIGNS: Reviewed and were acceptable. GENERAL: The patient is a male, in no apparent distress, speaking in full sentences. HEENT: Normocephalic, atraumatic. Mucous membranes are moist and pink. Good mouth opening noted. Trachea is midline. Good neck mobility. CHEST: S1, S2 irregularly irregular. No murmurs, rubs or gallops were noted. LUNGS: Clear to auscultation bilaterally without appreciable wheezes, rales or rhonchi. ABDOMEN: Soft, nontender, nondistended. Positive bowel sounds. EXTREMITIES: There is no clubbing, cyanosis or edema. ASA Class: II DESCRIPTION OF PROCEDURE: After confirmation of informed consent, the patient's anesthesia plan was reviewed in detail. Propofol was chosen. Risks and benefits were reviewed and the patient agreed to proceed. At 1205, the patient was given 40 mg of propofol. The patient achieved an appropriate level of sedation and was given a 200 joule synchronized cardioversion by Dr. Dueñas at the bedside. This was successful in achieving normal sinus rhythm. The patient was monitored until 1219, at which time he reached his baseline mental status and function. The patient tolerated the procedure well. COMPLICATIONS: None ESTIMATED BLOOD LOSS: None RECOMMENDATIONS: Okay to recover in usual fashion.
== END 2025-02-15 13:15 | disposition home or self-care (01) ==
PROVIDERS: PCP Internal Medicine; Referring Provider Internal Medicine Cardiovascular Disease; Visit Provider Internal Medicine Cardiovascular Disease
DX: I48.91 Unspecified atrial fibrillation (principal); Z79.899 Other long term (current) drug therapy; Z79.01 Long term (current) use of anticoagulants; I10 Essential (primary) hypertension; K21.9 Gastro-esophageal reflux disease without esophagitis; Z87.891 Personal history of nicotine dependence; I25.10 Atherosclerotic heart disease of native coronary artery without angina pectoris
CPT/HCPCS: 92960; 93005

== ENCOUNTER → 2025-02-22 | Outpatient (CLI) | payer MEDICARE, SELFPAY | END | disposition home or self-care (01) | LOC: PSN 07:49 | PROVIDERS: PCP Internal Medicine; Referring Provider Internal Medicine Cardiovascular Disease; Visit Provider Internal Medicine Cardiovascular Disease | DX: R42 Dizziness and giddiness (principal); I48.0 Paroxysmal atrial fibrillation; R00.1 Bradycardia, unspecified | CPT/HCPCS: 93225; 93226 ==